=== PATIENT | male | born 1965 | race Caucasian/White ===

== ENCOUNTER → 2023-06-11 06:20 | Outpatient (REF) | payer OTHER, SELFPAY ==
[2023-06-11 10:16] LABS: Urine Albumin Trace (Neg - Trace); Urine Bilirubin Negative (Negative); Urine Character Clear (Clear); Urine Color Yellow; Urine Glucose 3+ (Negative); Urine Ketone Negative (Negative); Urine Leukocyte Negative (Negative); Urine Nitrite Negative (Negative); Urine Occult Blood Negative (Negative); Urine Urobilinogen Negative (Neg - 1+)
[2023-06-11 10:28] LABS: ALT (SGPT) 24 U/L (0-50); AST (SGOT) 26 U/L (17-59); Albumin 3.9 g/dl (3.5-5.0); Alkaline Phosphatase 57 U/L (38-126); Blood Urea Nitrogen 13 mg/dl (9-20); Calcium 9.3 mg/dl (8.4-10.2); Carbon Dioxide 26 mmol/L (22-30); Chloride 103 mmol/L (98-107); Glucose 120 mg/dl (70-99); HDL Cholesterol 45 mg/dl; LDL Cholesterol, Calculated 46 mg/dl; Potassium 4.5 mmol/L (3.5-5.1); Sodium 134 mmol/L (135-145); Total Bilirubin 0.5 mg/dl (0.2-1.3); Total Cholesterol 110 mg/dl (50-199); Total Protein 6.6 g/dl (6.3-8.2); Triglyceride 96 mg/dl (10-149); Very Low Density Lipoprotein 19 mg/dl (0-30); eGFR > 60.00
[2023-06-11 10:49] LABS: PSA, Total - Screen 0.45 ng/ml (0.0-4.0); TSH Reflex To Free T4 1.58 uIU/ml (0.47-4.68)
[2023-06-11 10:52] LABS: % Basophils 0.8 % (0-2); % Eosinophils 6.2 % (0-6); % Immature Granulocytes 0.4 % (0-0.5); % Lymphocytes 25.1 % (20.5-51.1); % Monocytes 9.2 % (1.7-9.3); % Neutrophils 58.3 % (42.2-75.2); Absolute Basophils 0.1 10^3/uL (0-0.2); Absolute Eosinophils 0.4 10^3/uL (0-0.7); Absolute Lymphocytes 1.8 10^3/uL (1.2-3.4); Absolute Monocytes 0.7 10^3/uL (0.1-0.6); Absolute Neutrophils 4.1 10^3/uL (1.4-6.5); Hematocrit 47.6 % (39.0-52.0); Hemoglobin 16.3 g/dL (13.0-18.0); Mean Corp Hgb Conc. 34.2 g/dL (33.0-37.0); Mean Corpuscular Volume 93.3 fL (80.0-94.0); Nucleated Red Blood Cells % 0 % (-); Platelet Count 233 10^3/uL (130-400); Red Cell Dist. Width 13.3 % (11.5-14.5); White Blood Cell Count 7.1 10^3/uL (4.8-10.8)
[2023-06-11 11:47] LABS: Glycohemoglobin (HgbA1c) 7.3 % (4.0-5.6)
[2023-06-11 12:27] LABS: Microalbumin, Random Urine 0.9 mg/dl (0.6-1.7); Microalbumin/creatinine Ratio 4.6 mg/g
== END ==
LOC: HWLAB 06:20
PROVIDERS: ATTENDING PHYSICIAN Family Medicine
DX: E11.9 Type 2 diabetes mellitus without complications (principal); Z00.01 Encounter for general adult medical examination with abnormal findings; E78.5 Hyperlipidemia, unspecified; Z68.37 Body mass index [BMI] 37.0-37.9, adult; E66.01 Morbid (severe) obesity due to excess calories; F17.210 Nicotine dependence, cigarettes, uncomplicated; R22.1 Localized swelling, mass and lump, neck
CPT/HCPCS: 36415; 80053; 80061; 81003; 82043; 82570; 83036; 84443; 85025; G0103

== ENCOUNTER → 2023-07-23 15:46 | Outpatient (REF) | payer OTHER, SELFPAY | LOC: HWRAD 15:46 | PROVIDERS: ATTENDING PHYSICIAN Family Medicine | DX: F17.210 Nicotine dependence, cigarettes, uncomplicated (principal) | CPT/HCPCS: 71271 ==

== ENCOUNTER → 2023-09-11 08:13 | Outpatient (REF) | payer OTHER, SELFPAY ==
[2023-09-11 09:53] LABS: ALT (SGPT) 25 U/L (0-50); AST (SGOT) 23 U/L (17-59); Albumin 4.1 g/dl (3.5-5.0); Alkaline Phosphatase 62 U/L (38-126); Amylase 50 U/L (30-110); Blood Urea Nitrogen 11 mg/dl (9-20); Calcium 9.4 mg/dl (8.4-10.2); Carbon Dioxide 24 mmol/L (22-30); Chloride 103 mmol/L (98-107); Glucose 142 mg/dl (70-99); Lipase 391 U/L (23-300); Potassium 4.7 mmol/L (3.5-5.1); Sodium 136 mmol/L (135-145); Total Bilirubin 0.4 mg/dl (0.2-1.3); Total Protein 6.5 g/dl (6.3-8.2); eGFR > 60.00
[2023-09-12 09:26] LABS: Glycohemoglobin (HgbA1c) 6.8 % (4.0-5.6)
== END ==
LOC: HWLAB 08:13
PROVIDERS: ATTENDING PHYSICIAN Family Medicine
DX: E11.9 Type 2 diabetes mellitus without complications (principal); Z00.01 Encounter for general adult medical examination with abnormal findings; E78.5 Hyperlipidemia, unspecified; Z68.37 Body mass index [BMI] 37.0-37.9, adult; E66.01 Morbid (severe) obesity due to excess calories
CPT/HCPCS: 36415; 80053; 82150; 83036; 83690

== ENCOUNTER 2023-11-19 09:58 | Inpatient (IN) | payer OTHER, SELFPAY ==
[2023-11-19] VITALS (25 sets, daily range): BP systolic 108–140; BP diastolic 57–92; BMI 42.3
[2023-11-19 07:08] LABS: Hematocrit 48.7 % (39.0-52.0); Hemoglobin 16.7 g/dL (13.0-18.0); Mean Corp Hgb Conc. 34.3 g/dL (33.0-37.0); Mean Corpuscular Hgb 30.9 pg (27.0-31.0); Mean Platelet Volume 8.4 fL (7.4-10.4); Platelet Count 253 10^3/uL (130-400); Red Blood Cell Count 5.41 10^6/uL (4.70-6.10); Red Cell Dist. Width 13.2 % (11.5-14.5); White Blood Cell Count 7.4 10^3/uL (4.8-10.8)
[2023-11-19 07:17] LABS: ALT (SGPT) 27 U/L (0-50); AST (SGOT) 25 U/L (17-59); Albumin 4.4 g/dl (3.5-5.0); Alkaline Phosphatase 62 U/L (38-126); Blood Urea Nitrogen 10 mg/dl (9-20); Calcium 9.6 mg/dl (8.4-10.2); Carbon Dioxide 25 mmol/L (22-30); Chloride 103 mmol/L (98-107); Glucose 146 mg/dl (70-99); Potassium 4.6 mmol/L (3.5-5.1); Sodium 140 mmol/L (135-145); Total Bilirubin 0.6 mg/dl (0.2-1.3); Total Protein 6.9 g/dl (6.3-8.2); eGFR > 60.00
[2023-11-19] MEDS: LOW STRENGTH ASPIRIN 81 MG PO (07:33)
--- NOTE | 2023-11-19 09:54 | ITS.CL.CATH ---
Internet Security Specialist - Catheterization
Cardiac Catheterization
Procedure Report:
LEFT HEART CATHETERIZATION
Date of Procedure: November 19, 2023
Referring: Dr. Jamel Berry
PROCEDURES:
1. Left heart catheterization with coronary and single-plane left ventriculography
INDICATION: This is a 58-year-old gentleman with a longstanding history of diabetes, hypertension, hyperlipidemia, and anxiety. He smokes approximately 1/2 pack of cigarettes daily. He reported the onset of vague left-sided chest discomfort
occurring intermittently with no obvious relationship to physical activity. We discussed coronary angiography versus stress testing. He he felt uncomfortable with the thought of proceeding directly for coronary angiography and his symptoms were
somewhat vague so we proceeded with a PET/CT ischemic evaluation where he was noted to have a moderate size reversible defect in the mid to distal anterior wall and a moderate size predominantly reversible defect in the basal to distal inferior wall
encompassing a small part of the apex. The estimated LVEF was 58%. Given his symptoms, cardiovascular risk factors, and result of the PET/CT imaging the decision was made to proceed with coronary angiography. The patient states that he
experienced some more vague chest discomfort on several occasions over the past several days while at rest and with exertion
ACCESS: Right radial artery, 6 Georgian sheath
HEMODYNAMICS : (mmHg)
AO (s/d) : 135/76, 102
LV (s/d) : 131/17
LVEDP : 28
CORONARY FINDINGS
DOMINANCE: Right
LEFT MAIN: Normal
LEFT ANTERIOR DESCENDING: The LAD is moderately calcified over its course with a proximal calcified 60-70% stenosis involving the origin of the first diagonal branch. There is a 50% stenosis in the mid LAD and 50-60% stenosis distally. The first
diagonal branch is small.
CIRCUMFLEX: The circumflex is a large-caliber nondominant vessel. OM1 has a proximal 70-80% stenosis near its origin. The mid circumflex just before the origin of OM 2 has an 80% stenosis. OM 2 is large and bifurcates to a larger and smaller
daughter branch.
RIGHT CORONARY ARTERY: The right coronary artery is heavily calcified with a long area of diffuse atherosclerotic disease in the midportion of the vessel. The RCA becomes occluded/subtotally occluded beyond the second RV marginal branch and the
distal vessel is noted to fill via right to right and [id number]-[id number] collaterals.
VENTRICULOGRAPHY: Left ventriculography was performed in an HULL projection. The digital single-plane left ventricular ejection fraction is visually estimated at 45% with history of basal and diaphragmatic inferior mild hypokinesis
RADIATION SUMMARY: Fluoro Time (min): 4.0, Dose (mGy): 474, DAP (Gy.cm2) : 38.5
Closure Device: TR band
CONCLUSIONS
1. Multivessel coronary artery disease with low normal to mildly reduced LVEF as described above
RECOMMENDATIONS
1. Will consult CT surgery
2. Patient will be admitted to initiate workup and optimize medical therapy. He experienced some resting or low level exertional chest discomfort on several occasions over the past several days. Will begin optimizing medical therapy with addition
of oral beta-isaias, ARI inhibitor, and nitrate. Blood pressures have been well-controlled in the past.
Copy to: Dr. Jamel Berry
--- NOTE | 2023-11-19 10:25 | CONSULT.CT ---
Consultation
-
Date/Time Consultation Requested: 11/18
Date/Time Consultation Performed: 11/18
Requesting Provider: Jamel Berry
Performing Provider: Elle Barron for Dr. Rikki Saleem
Reason for Consultation: CABG evaluation
Patient History
Physicians
Family Physician: Nirmal Jimenez
Outpatient Rigging Up Man: Jamel Berry
Inpatient Rigging Up Man: Jamel Berry
History of Present Illness
Terry Cooper is a 58-year-old [id number] male with past medical history significant for type 2 diabetes x 20 years, obesity, and current tobacco use, who was electively admitted for left heart catheterization on 11/19/2023.
Patient had low-dose lung CT screening for lung cancer which was negative but incidental finding of severe coronary calcifications was noted. Patient does recount over the past several of having some exertional chest tightness which resolved
quickly with rest. A PET scan was performed on 11/10/2023 and reported mid to distal anterior perfusion defect and an inferior apical defect. Patient was therefore referred for left heart catheterization to evaluate symptoms and diagnostic findings.
Left heart Cath (R radial) :
LEFT MAIN: Normal
LEFT ANTERIOR DESCENDING: Proximal calcified 60-70% stenosis involving the origin of D1. 50% mid and 50-60% distal stenosis. The first diagonal branch is small.
CIRCUMFLEX (non-dominant): 70-80% proximal OM1 near its origin. 80% mid circumflex just before the origin of OM 2. OM 2 is large and bifurcates to a larger and smaller daughter branch.
RIGHT CORONARY ARTERY: Heavily calcified with a long area of diffuse atherosclerotic disease in the midportion of the vessel. The RCA becomes occluded/subtotally occluded beyond the second RV marginal branch and the distal vessel is noted to fill
via right to right and [id number]-rq-[id number] collaterals.
VENTRICULOGRAPHY: LVEF 45% with history of basal and diaphragmatic inferior mild hypokinesis
Past Medical History
Past Medical History: Hypercholesterolemia, NIDDM (x 20 years ), Psychiatric (anxiety/depression) and Other (obesity (BMI 42.3), cervical herniate disc)
Past Surgical History
Past Surgical History: Orthopedic (C3-5 fusion, benign colon polypectomy (2020); nasal septal fracture open reduction)
Family History
Mother: Still Living
Father: Still Living (s/p CABG 5 years ago)
Family Medical History: CAD
Social History
Drug: None
Tobacco: Smoker (current 1/2 PPD x 40 years)
Personal: Single
Living: With Family
Employment: Employed ([employer] work for [employer])
Allergies
Allergy/AdvReac Type Severity Reaction Status Date / Time
No Known Allergies Allergy Unverified 12/28/19 06:58
Home Medications
�Medication �Instructions �Recorded �Confirmed �Type
metformin 500 mg tablet 1,000 mg PO BID 12/27/19 11/19/23 History
simvastatin 40 mg tablet 40 mg PO QPM 12/27/19 11/19/23 History
aspirin 81 mg tablet,delayed 81 mg PO DAILY 12/28/19 11/19/23 History
release (Ecotrin Low Strength)
dapagliflozin propanediol 5 mg 5 mg PO DAILY 11/19/23 11/19/23 History
tablet (Farxiga)
glimepiride 1 mg tablet 1 mg PO DAILY 11/19/23 11/19/23 History
tirzepatide 5 mg/0.5 mL 5 mg SC QWEEK 11/19/23 11/19/23 History
subcutaneous pen injector
(Mounjaro)
Review of Systems
-
History Source: Patient
General: Reports Weight Loss (20 pounds in the past year on Mounjaro)
HEENT: Reports No Symptoms
Respiratory: Reports No Symptoms
Cardiac: Reports Chest Pain (Exertional chest tightness)
Abdomen/GI: Reports No Symptoms
: Reports No Symptoms
Musculoskeletal: Reports No Symptoms
Skin: Reports No Symptoms
Neurological: Reports No Symptoms
Vascular: Reports No Symptoms
Physical Exam
Vital Signs
Temp 98.2 F 11/19/23 06:43
Temp route: Oral 11/19/23 06:43
Pulse 72 11/19/23 08:49
Resp Rate 20 11/19/23 08:49
Blood pressure 121/67 11/19/23 08:49
Blood pressure extremity used: Right upper arm 11/19/23 06:43
Position: Lying 11/19/23 06:43
MAP (cuff-Jovita Monitor) 84 11/19/23 08:49
SaO2 96 11/19/23 08:49
Oxygen Mode of Delivery Room air 11/19/23 06:43
Can the patient verbally communicate their pain? Yes 11/19/23 06:43
Actual Weight 133.81 kg 11/19/23 07:28
Body Mass Index (BMI) 42.3 11/19/23 07:28
Labs
11/19/23 06:55
11/19/23 06:55
Exam
General: No Apparent Distress and Other (obese)
HEENT: Normocephalic, Anicteric, Moist Mucous Membranes and PERRLA
Neck: Trachea Midline
Respiratory: Clear
Cardiac: S1/S2 and Regular Rhythm
GI: Soft, Non Tender, Non Distended and Normal Bowel Sounds
Rectal: Deferred by Provider
Skin: Warm and Dry
Neuro: AO x 3, No Motor Deficits and Nonfocal/Grossly Intact
Extremities: Pulses (+1/4 DP pulses B/L) and Other (TR band to R radial artery, no bleeding)
Lymph: No Lymphadenopathy
Psych: Calm
Assessment / Plan
-
58-year-old male with triple-vessel coronary disease and mildly reduced LV function (EF 45%)
- admit per cardiac for initiation of beta-isaias, ARI inhibitor, and nitrate. Patient currently receiving Farxiga
- Surgeon to review imaging and discuss risk benefit of CABG procedure with patient and family
Data Reviewed
-
EKG: Report Reviewed by me and Discussed with Physician
Lay Out Maker: Report Reviewed by me and Discussed with Physician
Medical Tests (Nuc Med, etc): Report Reviewed by me and Discussed with Physician
Labs: Labs Reviewed by me and Discussed with Physician
[2023-11-19] MEDS: TOPROL XL 25 MG PO (11:24)
[2023-11-19 12:25] LABS: Glucose - Point of Care 125 mg/dl (70-99)
[2023-11-19] MEDS: NOVOLOG FLEXPEN-MODERATE RESISTANCE SC (12:37)
--- NOTE | 2023-11-19 14:56 | CM ---
Chart reviewed. Patient is independent of ADLS, lives with his mother in a 2 STH, 3-4 ADRIANO, 0 DME. Plan is for the patient to return home. CM to follow
[2023-11-19 16:52] LABS: Glucose - Point of Care 152 mg/dl (70-99)
[2023-11-19] MEDS: LIPITOR 80 MG PO (17:24)
[2023-11-19] MEDS: ZESTRIL 2.5 MG PO (17:24)
[2023-11-19] MEDS: NOVOLOG FLEXPEN-MODERATE RESISTANCE 1 UNITS SC (17:27)
[2023-11-19 21:18] LABS: Glucose - Point of Care 152 mg/dl (70-99)
[2023-11-19] MEDS: NITROGLYCERIN PREMIX 250 IV (21:40)
--- NOTE | 2023-11-19 22:20 | W.PN.UPDATE ---
Addendum entered and electronically signed by Rikki Saleem MD 11/20/23 10:06:
I saw and examined the patient.
The PA's note was reviewed and I agree with the note.
Comment:
Patient seen and examined. Remains chest pain-free after overnight issue. Given this event, I believe it is prudent to proceed with inpatient surgical revascularization. I will make arrangements for this coming 11/25/2023. I anticipate
CABG x 4-5 with LOPEZ to LAD, GSV to OM1, RA to OM 2, GSV to PDA, and potential GSV to D1 (this vessel is likely too small to accommodate bypass but will be assessed intraoperatively). The patient is agreeable to proceeding with inpatient CABG. I
will have a full preoperative discussion with the patient and his family once they arrive later today.
Thank you for the opportunity to participate in the care of this patient.
Please call with any questions or concerns.
Rikki Saleem MD
[phone]
Original Note:
Update Note
Progress Note Update
-came at 9:35pm to eval pt for 3/10 CP. It feels like 'squeezing, pressure' discomfort, well localized with 1 finger at L sternal border without radiation, no exacerbating factors, not reproducible with palpation, feels similar to his prior sxs. ECG
without acute changes. CP resolved spontaneously during our conversation. BP 120/80, hr 68 nsr, pOx 96% on RA and 97% on 2L.
-started iv Nitro
-will continue to monitor
[2023-11-19] MEDS: MAALOX PLUS 1 TABLET PO (23:04)
[2023-11-19] MEDS: COLACE 100 MG PO (23:04)
--- NOTE | 2023-11-19 23:41 | PTCARENOTE ---
at approx 2130, patient called for RN complaining of chest pain. 3/10 Left chest pressure, non radiating. updated Tsilina CV PA; at bedside. EKG completed. placed on 2L-96% on RA. chest pain wax and weans per patient. Nitro gtt started per PA. bp
120/80. SR 60s on tele. reviewed new medication with patient and verbalized understanding. educated patient to call with any new changes. call burciaga within reach.
[2023-11-20] VITALS (17 sets, daily range): BP systolic 90–134; BP diastolic 53–80
[2023-11-20 04:53] LABS: INR 1.06; PT 13.8 Sec (11.4-14.6)
[2023-11-20 04:54] LABS: APTT 28.6 Sec (23.4-35.0)
[2023-11-20 05:01] LABS: Hematocrit 44.3 % (39.0-52.0); Hemoglobin 15.2 g/dL (13.0-18.0); Mean Corp Hgb Conc. 34.3 g/dL (33.0-37.0); Mean Corpuscular Hgb 30.8 pg (27.0-31.0); Mean Corpuscular Volume 89.7 fL (80.0-94.0); Mean Platelet Volume 8.6 fL (7.4-10.4); Platelet Count 198 10^3/uL (130-400); Red Blood Cell Count 4.94 10^6/uL (4.70-6.10); Red Cell Dist. Width 13.2 % (11.5-14.5); White Blood Cell Count 8.7 10^3/uL (4.8-10.8)
[2023-11-20 05:11] LABS: ALT (SGPT) 23 U/L (0-50); AST (SGOT) 21 U/L (17-59); Albumin 3.6 g/dl (3.5-5.0); Alkaline Phosphatase 57 U/L (38-126); Blood Urea Nitrogen 14 mg/dl (9-20); Calcium 9.5 mg/dl (8.4-10.2); Carbon Dioxide 26 mmol/L (22-30); Chloride 101 mmol/L (98-107); Direct Bilirubin 0.2 mg/dl (0.0-0.4); Estimated Creatinine Clearance > 125 ml/min; Glucose 148 mg/dl (70-99); HDL Cholesterol 41 mg/dl; LDL Cholesterol, Calculated 38 mg/dl; Potassium 4.6 mmol/L (3.5-5.1); Sodium 139 mmol/L (135-145); Total Bilirubin 0.6 mg/dl (0.2-1.3); Total Cholesterol 104 mg/dl (50-199); Total Protein 6.1 g/dl (6.3-8.2); Triglyceride 125 mg/dl (10-149); Very Low Density Lipoprotein 25 mg/dl (0-30); eGFR > 60.00
--- NOTE | 2023-11-20 06:30 | PTCARENOTE ---
patient complained of chest pressure this morning. titrated nitro gtt per protocol. currently nitro gtt at 20 mcg/min. bp 117/67. SR 80s.
--- NOTE | 2023-11-20 08:00 | PTCARENOTE ---
Assumed care of pt from prev nsg shift; Pt AAOx3 with c/o 1-2 chest 'discomfort'; Pt states 'the nitroglycerin is helping'. Pt w/IV Nitro drip infusing as ordered. Pt's VS stable w/HR in the 70's-80's, BP a little low at 90/68. Pt's R radial site
w/dressing C/D/I w/no signs or symptoms of bleeding or hematoma. Pt encouraged to ambulate more & eat meals OOB in . Pt agreeable to that suggestion. Pt w/no addtl needs this time. Call burciaga within reach.
[2023-11-20 09:07] LABS: Glucose - Point of Care 159 mg/dl (70-99)
[2023-11-20 09:40] LABS: Glycohemoglobin (HgbA1c) 6.6 % (4.0-5.6)
[2023-11-20] MEDS: ZESTRIL 2.5 MG PO (09:48)
[2023-11-20] MEDS: NOVOLOG FLEXPEN-MODERATE RESISTANCE 1 UNITS SC (09:48)
[2023-11-20] MEDS: AMARYL 1 MG PO (09:49)
[2023-11-20] MEDS: TOPROL XL 25 MG PO (09:49)
[2023-11-20] MEDS: LOW STRENGTH ASPIRIN 81 MG PO (09:49)
--- NOTE | 2023-11-20 11:37 | CM ---
Chart reviewed. Patient is independent of ADLS, lives with his mother in a 2 STH, 3-4 ADRIANO, 0 DME. Patient waiting to talk with CT Surgery on plan of care. Plan is for the patient to return home. CM to follow
[2023-11-20 13:25] LABS: Glucose - Point of Care 136 mg/dl (70-99)
[2023-11-20] MEDS: NOVOLOG FLEXPEN-MODERATE RESISTANCE SC ×2 (13:28→18:09)
--- NOTE | 2023-11-20 13:36 | W.PN.UPDATE ---
Update Note
Progress Note Update
STS RISK SCORE
Procedure Type:�Isolated CABG
PERIOPERATIVE OUTCOME ESTIMATE %
Operative Mortality 0.63%
Morbidity & Mortality 5.57%
Stroke 0.607%
Renal Failure 0.734%
Reoperation 1.46%
Prolonged Ventilation 3.09%
Deep Sternal Wound Infection 0.757%
Long Hospital Stay (>14 days) 2.83%
Short Hospital Stay (<6 days)* 55.1%
Clinical Summary
Planned Surgery: Isolated CABG, Urgent, First cardiovascular surgery
Demographics: 58 year old, male, 133.8kg, 178cm, BMI: 42.2 kg/m�
Lab Values: Creatinine: 0.7 mg/dL, Hematocrit: 44.3%, WBC Count: 8.7 10�/�L, Platelet Count: 371991 cells/�L
PreOp Medications: Insulin diabetes control
Substance Abuse: Current smoker
Risk Factors / Comorbidities: Insulin-dependent Diabetes Mellitus, Hypertension
Cardiac Status: NYHA Class II, Ejection Fraction = 57%
Coronary Artery Disease: 3 vessels diseased, Proximal LAD Stenosis >=70%, Stable Angina
Valve Disease: Trivial/Trace MR, Trivial/Trace TR
[2023-11-20 17:10] LABS: Glucose - Point of Care 139 mg/dl (70-99)
[2023-11-20] MEDS: LIPITOR 80 MG PO (18:35)
[2023-11-20 20:19] LABS: Urine Albumin Negative (Neg - Trace); Urine Bilirubin Negative (Negative); Urine Character Clear (Clear); Urine Color Yellow; Urine Glucose 2+ (Negative); Urine Ketone Negative (Negative); Urine Leukocyte Negative (Negative); Urine Nitrite Negative (Negative); Urine Occult Blood Negative (Negative); Urine Specific Gravity 1.015 (<1.030); Urine Urobilinogen Negative (Neg - 1+)
[2023-11-20 21:12] LABS: Glucose - Point of Care 140 mg/dl (70-99)
[2023-11-20] MEDS: MAALOX 30 ML PO (23:57)
[2023-11-21] VITALS (10 sets, daily range): BP systolic 98–130; BP diastolic 53–71
--- NOTE | 2023-11-21 00:03 | PTCARENOTE ---
Pt received start of shift, HR SR. R AC iv noted to be red and painful to touch (no edema). Line removed and new line placed in L AC. IV team notified - warm compress on old R AC site. Updated pt on plan of care, pt states understanding.
Nitro gtt currently infusing at 35mcgs/min. Pt reports having been CP free previous shift after sitting up in chair. On lying down in bed w/ HOB 60 degrees, pt states feeling chest pressure/pain 2/10. Nitro titrated - see worklist. Pt informed RN he
has been having similar pain/pressure when lying down at home for the past few months and GasX + 'heartburn medicine' has helped. Spoke to CVPA Ed, maalox ordered and administered. Pt ambulated to chair - pt states as soon as they were sitting on
side of the bed/standing, CP started to dissipate. Pt currently reports 0/10 CP sitting w/ legs up in chair.
[2023-11-21 04:12] LABS: Hematocrit 43.1 % (39.0-52.0); Hemoglobin 15.1 g/dL (13.0-18.0); Mean Corpuscular Hgb 32.1 pg (27.0-31.0); Mean Corpuscular Volume 91.5 fL (80.0-94.0); Mean Platelet Volume 8.8 fL (7.4-10.4); Platelet Count 205 10^3/uL (130-400); Red Blood Cell Count 4.71 10^6/uL (4.70-6.10); Red Cell Dist. Width 12.9 % (11.5-14.5); White Blood Cell Count 11.5 10^3/uL (4.8-10.8)
[2023-11-21 04:31] LABS: Blood Urea Nitrogen 18 mg/dl (9-20); Calcium 9.5 mg/dl (8.4-10.2); Carbon Dioxide 26 mmol/L (22-30); Chloride 97 mmol/L (98-107); Estimated Creatinine Clearance > 125 ml/min; Glucose 145 mg/dl (70-99); Potassium 4.4 mmol/L (3.5-5.1); Sodium 134 mmol/L (135-145); eGFR > 60.00
--- NOTE | 2023-11-21 08:01 | W.PN.CT ---
Today's Communication / Plan
-
Plan:
-Pt had 3/10 chest pain last night with attempts to wean off NTG gtt. Cont. NTG gtt
-Ongoing preop workup and medical optimization
-For CABG by Dr. Saleem Friday 11/24
-Will cont. to closely monitor
Assessment / Plan
-
Assessment:
-Severe 3vCAD
-T2DM (A1C 6.6)
-Hyperlipidemia
-Class 3 obesity (BMI 42.3)
-Current tobacco use
-Anxiety/Depression
-S/P Cervical spine fusion (C3-5)
-S/P Nasal septal fx reduction
Discussed patient care with: Cardiology, Nursing, Pharmacy and Care Team
Subjective
-
Date of Service: November 21, 2023
Pt had 3/10 chest pain with NTG weaned to 5 mcg/min last night. Resolved with increased NTG to 35 mcg/min
Objective Data
-
Lab Results
11/21/23 03:32
11/21/23 03:32
PT 13.8 Sec (11.4-14.6) 11/20/23 04:12
INR 1.06 11/20/23 04:12
APTT 28.6 Sec (23.4-35.0) 11/20/23 04:12
Vital Signs
Vital Signs
Temp Pulse Resp BP Pulse Ox
98.4 F 79 18 117/64 94
11/21/23 03:25 11/21/23 03:30 11/21/23 03:25 11/21/23 03:25 11/21/23 03:25
CT Intake/Output/Weight
11/20/23 11/21/23 11/21/23
18:59 06:59 18:59
Intake Total 960 / 1440 480 / 1440
Balance 960 / 1440 480 / 1440
SaO2: 94 (RA)
Physical Exam
-
General: Awake, Oriented and AOx3
Cardiovascular: Regular rate & rhythm
Respiratory: Clear
Extremities: No Edema
Data Reviewed
-
Lab Results: Results Reviewed
Medications: Active Meds Reviewed
Chest X-Ray: Report Reviewed and Image Reviewed
[2023-11-21] MEDS: LOW STRENGTH ASPIRIN 81 MG PO (08:25)
[2023-11-21] MEDS: AMARYL 1 MG PO (08:25)
[2023-11-21] MEDS: ZESTRIL 2.5 MG PO (08:25)
[2023-11-21] MEDS: TOPROL XL 25 MG PO (08:25)
[2023-11-21 08:30] LABS: Glucose - Point of Care 146 mg/dl (70-99)
[2023-11-21] MEDS: NOVOLOG FLEXPEN-MODERATE RESISTANCE SC ×3 (08:30→17:00)
--- NOTE | 2023-11-21 10:08 | W.PN.CARDCBS ---
Today's Communication / Plan
-
Check Mg and Keep Potassium greater than 4 and magnesium greater than 2. Potassium level is normal today
Increase Toprol XL to 37.5 mg daily. Will give 12.5 mg now.
If he has recurrent NSVT or significant ventricular ectopy, will consider starting amiodarone.
Cont IV nitro for pain control.
CT surgery evaluated and patient is for next week for CABG.
EF is preserved
Cont ASA and statin and ACEI
Impression / Plan
-
.
IMPRESSION:
-Multivessel coronary artery disease, following cath for abnormal stress testing
-NSVT, 10 beat run November 20
-Type 2 diabetes
-Morbid obesity
-Mixed hyperlipidemia
-Anxiety disorder
Echo Nov 19 2023: EF 55 to 60% with no significant valvular disease.
Left heart Cath (R radial) 11/19/2023:
LEFT MAIN: Normal
LEFT ANTERIOR DESCENDING: Proximal calcified 60-70% stenosis involving the origin of D1. 50% mid and 50-60% distal stenosis. The first diagonal branch is small.
CIRCUMFLEX (non-dominant): 70-80% proximal OM1 near its origin. 80% mid circumflex just before the origin of OM 2. OM 2 is large and bifurcates to a larger and smaller daughter branch.
RIGHT CORONARY ARTERY: Heavily calcified with a long area of diffuse atherosclerotic disease in the midportion of the vessel. The RCA becomes occluded/subtotally occluded beyond the second RV marginal branch and the distal vessel is noted to fill
via right to right and qbzm-gq-[id number] collaterals.
Plan:
Check Mg and Keep Potassium greater than 4 and magnesium greater than 2. Potassium level is normal today
Increase Toprol XL to 37.5 mg daily. Will give 12.5 mg now.
If he has recurrent NSVT or significant ventricular ectopy, will consider starting amiodarone.
Cont IV nitro for pain control.
CT surgery evaluated and patient is for next week for CABG.
EF is preserved
Cont ASA and statin and ACEI
Discussed with nursing
Discussed with family at bedside.
Progress Note - Social Service Coordinator
Subjective
Date of Service: November 21, 2023
Pt seen and examined. No complaints. No chest pain or shortness of breath.
Objective
Labs:
11/21/23 03:32
11/21/23 03:32
Labs
Hgb 15.1 g/dL (13.0-18.0) 11/21/23 03:32
Hct 43.1 % (39.0-52.0) 11/21/23 03:32
Plt Count 205 10^3/uL (130-400) 11/21/23 03:32
PT 13.8 Sec (11.4-14.6) 11/20/23 04:12
INR 1.06 11/20/23 04:12
APTT 28.6 Sec (23.4-35.0) 11/20/23 04:12
Sodium 134 mmol/L (135-145) L 11/21/23 03:32
Potassium 4.4 mmol/L (3.5-5.1) 11/21/23 03:32
BUN 18 mg/dl (9-20) 11/21/23 03:32
Creatinine 0.7 mg/dL (0.7-1.3) 11/21/23 03:32
Glucose 145 mg/dl (70-99) H 11/21/23 03:32
Vital Signs and I&O:
Vital Signs
Temp Pulse Resp BP Pulse Ox
97.6 F 79 18 117/61 96
11/21/23 08:16 11/21/23 08:15 11/21/23 08:16 11/21/23 08:11 11/21/23 08:16
Vital Signs
Temp Pulse Resp BP Pulse Ox
97.6 F 79 18 117/61 96
11/21/23 08:16 11/21/23 08:15 11/21/23 08:16 11/21/23 08:11 11/21/23 08:16
Intake & Output
11/19/23 11/20/23 11/21/23 11/22/23
06:59 06:59 06:59 06:59
Intake Total 1360 / 1360 1440 / 1440
Output Total 500 / 500 350 / 350
Balance 860 / 860 1440 / 1440 -350 / -350
Physical Exam
Physical Exam
General: No acute distress, AAOX3
Neck: Negative JVD
Heart: Regular, Negative S3 positive S1/S2, Negative S4, No murmur
Lungs: CTA b/l, negative wheezes/rales/rhonchi
Abd: Positive BS, NT/ND, neg rebound/rigidity/guarding
Ext: Negative cyanosis/clubbing/edema
Neuro: nonfocal
[2023-11-21 12:42] LABS: Glucose - Point of Care 149 mg/dl (70-99)
--- NOTE | 2023-11-21 13:20 | PTCARENOTE ---
Patient in chair. Had a brief moment of lightheadedness before his telemetry alarmed [address] Rivas notified. Magnesium added and Toprol 12.5 mg ordered now. If ectopy continues notify attending
[2023-11-21 13:53] LABS: Magnesium 2.1 mg/dl (1.6-2.3)
[2023-11-21] MEDS: TOPROL XL 12.5 MG PO (15:17)
[2023-11-21 16:54] LABS: Glucose - Point of Care 142 mg/dl (70-99)
[2023-11-21] MEDS: LIPITOR 80 MG PO (17:08)
[2023-11-21 21:32] LABS: Glucose - Point of Care 172 mg/dl (70-99)
[2023-11-22 02:48] VITALS: BP 127/65
[2023-11-22 03:30] LABS: Blood Urea Nitrogen 16 mg/dl (9-20); Calcium 9.4 mg/dl (8.4-10.2); Carbon Dioxide 26 mmol/L (22-30); Chloride 102 mmol/L (98-107); Estimated Creatinine Clearance > 125 ml/min; Glucose 132 mg/dl (70-99); Magnesium 2.2 mg/dl (1.6-2.3); Potassium 4.7 mmol/L (3.5-5.1); Sodium 137 mmol/L (135-145); eGFR > 60.00
--- NOTE | 2023-11-22 06:25 | PTCARENOTE ---
Pt tolerated lying down in bed with no recurrence of CP overnight. Nitro infusing at 35mcg/min.
--- NOTE | 2023-11-22 06:32 | W.PN.CT ---
Today's Communication / Plan
-
Plan:
-No CP overnight. On NTG gtt
-Consider heparin gtt if further CP
-Ongoing preop workup and medical optimization
-For CABG by Dr. Saleem Friday 11/24
-Will cont. to closely monitor
Assessment / Plan
-
Assessment:
-Severe 3vCAD
-T2DM (A1C 6.6)
-Hyperlipidemia
-Class 3 obesity (BMI 42.3)
-Current tobacco use
-Anxiety/Depression
-S/P Cervical spine fusion (C3-5)
-S/P Nasal septal fx reduction
Discussed patient care with: Cardiology, Nursing, Respiratory Therapy, Pharmacy and Care Team
Subjective
-
Date of Service: November 22, 2023
No CP overnight. On NTG gtt
Objective Data
-
Lab Results
11/21/23 03:32
11/22/23 02:54
PT 13.8 Sec (11.4-14.6) 11/20/23 04:12
INR 1.06 11/20/23 04:12
APTT 28.6 Sec (23.4-35.0) 11/20/23 04:12
Vital Signs
Vital Signs
Temp Pulse Resp BP Pulse Ox
98.8 F 78 18 127/65 93
11/22/23 02:48 11/22/23 03:00 11/22/23 02:48 11/22/23 02:48 11/22/23 02:[address]
CT Intake/Output/Weight
11/21/23 11/21/23 11/22/23
06:59 18:59 06:59
Intake Total 480 / 1440 925 / 925
Output Total 350 / 350
Balance 480 / 1440 575 / 575
SaO2: 93 (RA)
Physical Exam
-
General: Awake, Oriented and AOx3
Cardiovascular: Regular rate & rhythm
Respiratory: Clear
Extremities: No Edema
Data Reviewed
-
Lab Results: Results Reviewed
Medications: Active Meds Reviewed
Chest X-Ray: Report Reviewed and Image Reviewed
ECG: Report Reviewed and Image Reviewed
[2023-11-22] MEDS: NITROGLYCERIN PREMIX 250 IV (07:12)
[2023-11-22 07:45] VITALS: BP 132/73
[2023-11-22 07:47] LABS: Glucose - Point of Care 130 mg/dl (70-99)
[2023-11-22] MEDS: NOVOLOG FLEXPEN-MODERATE RESISTANCE SC ×2 (08:19→16:54)
[2023-11-22] MEDS: ZESTRIL 2.5 MG PO (08:26)
[2023-11-22] MEDS: FLUSH (NSS) 1 FLUSH IV (08:27)
[2023-11-22] MEDS: TOPROL XL 12.5 MG PO (08:27)
[2023-11-22] MEDS: AMARYL 1 MG PO (08:27)
[2023-11-22] MEDS: TOPROL XL 25 MG PO (08:27)
[2023-11-22] MEDS: LOW STRENGTH ASPIRIN 81 MG PO (08:27)
[2023-11-22] MEDS: COLACE 100 MG PO (08:29)
--- NOTE | 2023-11-22 08:43 | PTCARENOTE ---
The patient is aaox3, vss, NSR on the monitor. Nitroglycerin running at 35 mcg/min. He complains of a 1/10 chest pain/pressure. He states that it gets worse when he lays flat. He has an occasional moist productive cough that has a clear/gonzales color to
it.
--- NOTE | 2023-11-22 10:06 | W.PN.CARDCBS ---
Today's Communication / Plan
-
No recurrent NSVT
Keep Potassium greater than 4 and magnesium greater than 2. Levels are stable
Toprol XL increased to 37.5 mg daily Nov 20.
If he has recurrent NSVT or significant ventricular ectopy, will consider starting amiodarone.
Cont IV nitro for pain control. CP may have a GI component
CT surgery evaluated and patient is for CABG next week
Impression / Plan
-
.
IMPRESSION:
-Multivessel coronary artery disease, following cath for abnormal stress testing
-NSVT, 10 beat run November 20
-Type 2 diabetes
-Morbid obesity
-Mixed hyperlipidemia
-Anxiety disorder
Echo Nov 19 2023: EF 55 to 60% with no significant valvular disease.
Left heart Cath (R radial) 11/19/2023:
LEFT MAIN: Normal
LEFT ANTERIOR DESCENDING: Proximal calcified 60-70% stenosis involving the origin of D1. 50% mid and 50-60% distal stenosis. The first diagonal branch is small.
CIRCUMFLEX (non-dominant): 70-80% proximal OM1 near its origin. 80% mid circumflex just before the origin of OM 2. OM 2 is large and bifurcates to a larger and smaller daughter branch.
RIGHT CORONARY ARTERY: Heavily calcified with a long area of diffuse atherosclerotic disease in the midportion of the vessel. The RCA becomes occluded/subtotally occluded beyond the second RV marginal branch and the distal vessel is noted to fill
via right to right and [id number]-[id number] collaterals.
Plan:
No recurrent NSVT
Keep Potassium greater than 4 and magnesium greater than 2. Levels are stable
Toprol XL increased to 37.5 mg daily Nov 20.
If he has recurrent NSVT or significant ventricular ectopy, will consider starting amiodarone.
Cont IV nitro for pain control. CP may have a GI component
CT surgery evaluated and patient is for CABG next week
EF is preserved
Cont ASA and statin and ACEI
Discussed with nursing
Progress Note - Crusher Foreman
Subjective
Date of Service: November 22, 2023
Pt seen and examined. No complaints. No chest pain or shortness of breath.
Objective
Labs:
11/21/23 03:32
11/22/23 02:54
Labs
Hgb 15.1 g/dL (13.0-18.0) 11/21/23 03:32
Hct 43.1 % (39.0-52.0) 11/21/23 03:32
Plt Count 205 10^3/uL (130-400) 11/21/23 03:32
PT 13.8 Sec (11.4-14.6) 11/20/23 04:12
INR 1.06 11/20/23 04:12
APTT 28.6 Sec (23.4-35.0) 11/20/23 04:12
Sodium 137 mmol/L (135-145) 11/22/23 02:54
Potassium 4.7 mmol/L (3.5-5.1) 11/22/23 02:54
BUN 16 mg/dl (9-20) 11/22/23 02:54
Creatinine 0.7 mg/dL (0.7-1.3) 11/22/23 02:54
Glucose 132 mg/dl (70-99) H 11/22/23 02:54
Vital Signs and I&O:
Vital Signs
Temp Pulse Resp BP Pulse Ox
98.7 F 77 20 132/73 93
11/22/23 07:48 11/22/23 08:00 11/22/23 07:48 11/22/23 07:45 11/22/23 07:48
Vital Signs
Temp Pulse Resp BP Pulse Ox
98.7 F 77 20 132/73 93
11/22/23 07:48 11/22/23 08:00 11/22/23 07:48 11/22/23 07:45 11/22/23 07:48
Intake & Output
11/20/23 11/21/23 11/22/23 11/23/23
06:59 06:59 06:59 06:59
Intake Total 1360 / 1360 1440 / 1440 925 / 925
Output Total 500 / 500 350 / 350
Balance 860 / 860 1440 / 1440 575 / 575
Physical Exam
Physical Exam
General: No acute distress, AAOX3
Neck: Negative JVD
Heart: Regular, Negative S3 positive S1/S2, Negative S4, No murmur
Lungs: CTA b/l, negative wheezes/rales/rhonchi
Abd: Positive BS, NT/ND, neg rebound/rigidity/guarding
Ext: Negative cyanosis/clubbing/edema
Neuro: nonfocal
[2023-11-22 11:52] VITALS: BP 105/63
[2023-11-22 11:56] LABS: Glucose - Point of Care 232 mg/dl (70-99)
[2023-11-22] MEDS: NOVOLOG FLEXPEN-MODERATE RESISTANCE 3 UNITS SC (13:08)
--- NOTE | 2023-11-22 14:16 | PTCARENOTE ---
Rec'd Pt A,A+Ox3, offers no complaints. IV NTG infusing at 35 mcg/min. Pt currently sitting OOB in chair.
[2023-11-22 15:51] VITALS: BP 108/62
[2023-11-22 16:52] LABS: Glucose - Point of Care 122 mg/dl (70-99)
[2023-11-22] MEDS: LIPITOR 80 MG PO (17:51)
[2023-11-22 18:58] VITALS: BP 108/64
[2023-11-22 21:04] LABS: Glucose - Point of Care 156 mg/dl (70-99)
[2023-11-22 22:52] VITALS: BP 110/49
[2023-11-23] VITALS (8 sets, daily range): BP systolic 111–129; BP diastolic 62–74
[2023-11-23 04:21] LABS: Chloride 104 mmol/L (98-107); Potassium 4.8 mmol/L (3.5-5.1); Sodium 137 mmol/L (135-145)
[2023-11-23 04:57] LABS: Blood Urea Nitrogen 13 mg/dl (9-20); Calcium 9.4 mg/dl (8.4-10.2); Carbon Dioxide 21 mmol/L (22-30); Estimated Creatinine Clearance > 125 ml/min; Glucose 120 mg/dl (70-99); eGFR > 60.00
--- NOTE | 2023-11-23 05:22 | PTCARENOTE ---
Pt states CP free overnight. Nitro infusing at 35mcg/min. Pt states they understand of plan of care.
--- NOTE | 2023-11-23 06:01 | W.PN.CT ---
Addendum entered and electronically signed by Rikki Saleem MD 11/23/23 15:36:
CARDIAC SURGERY ATTENDING:
It was my pleasure to meet with Mr. Terry Cooper in his bedside this afternoon. His mother was present during our discussions. We once again reviewed his coronary pathology, discussed the proposed operative interventions, reviewed the
perioperative risks (including, but not limited to, , stroke, VA, arrhythmia, PNA, FELICIANO/F, bleeding, and infection), discussed the expected in-hospital postoperative course and reviewed the expected outpatient recovery. All questions were
answered to the best of my abilities. The patient is agreeable to proceed.
I anticipate surgical coronary revascularization x 4-5 with planned WHITE to his LAD, greater saphenous vein to OM1, radial artery to OM 2, greater saphenous vein to PDA, and possible greater saphenous vein to his first diagonal. Given his very
brief episode of atrial fibrillation I will perform an exclusion of his left atrial appendage at the time of this procedure.
Thank you for the opportunity to participate in the care of this kind gentleman.
Please call with any questions or concerns.
Rikki Saleem MD
[phone]
Original Note:
Today's Communication / Plan
-
Plan:
-No CP overnight. On NTG gtt
-Consider heparin gtt if further CP
-Cont. to hold ARI-I/ARBs in preparation for OR
-Ongoing preop workup and medical optimization
-For CABG by Dr. Saleem Friday 11/24
-Will cont. to closely monitor
Assessment / Plan
-
Assessment:
-Severe 3vCAD
-T2DM (A1C 6.6)
-Hyperlipidemia
-Class 3 obesity (BMI 42.3)
-Current tobacco use
-Anxiety/Depression
-S/P Cervical spine fusion (C3-5)
-S/P Nasal septal fx reduction
Discussed patient care with: Cardiology, Nursing, Respiratory Therapy, Pharmacy and Care Team
Subjective
-
Date of Service: November 23, 2023
No chest pain or SOB overnight
Objective Data
-
Lab Results
11/21/23 03:32
11/23/23 03:23
PT 13.8 Sec (11.4-14.6) 11/20/23 04:12
INR 1.06 11/20/23 04:12
APTT 28.6 Sec (23.4-35.0) 11/20/23 04:12
Vital Signs
Vital Signs
Temp Pulse Resp BP Pulse Ox
98.9 F 76 18 113/62 94
11/23/23 03:10 11/23/23 04:00 11/23/23 03:10 11/23/23 03:14 11/23/23 03:10
SaO2: 94 (RA)
Physical Exam
-
General: Awake, Oriented and AOx3
Cardiovascular: Regular rate & rhythm, No Murmurs, No Rub and No Gallop
Respiratory: Clear
Incision: Clean, Dry, Intact and Dressing Intact
Extremities: No Edema
Data Reviewed
-
Lab Results: Results Reviewed
Medications: Active Meds Reviewed
Chest X-Ray: Report Reviewed and Image Reviewed
ECG: Report Reviewed and Image Reviewed
[2023-11-23] MEDS: AMARYL 1 MG PO (08:07)
[2023-11-23] MEDS: TOPROL XL 12.5 MG PO (08:08)
[2023-11-23] MEDS: LOW STRENGTH ASPIRIN 81 MG PO (08:09)
[2023-11-23] MEDS: TOPROL XL 25 MG PO (08:13)
[2023-11-23 08:19] LABS: Glucose - Point of Care 127 mg/dl (70-99)
[2023-11-23] MEDS: NOVOLOG FLEXPEN-MODERATE RESISTANCE SC (08:19)
[2023-11-23] MEDS: COLACE 100 MG PO ×2 (08:44→19:25)
--- NOTE | 2023-11-23 10:01 | W.PN.CARDCBS ---
Addendum entered and electronically signed by Jc Huitron DO 11/23/23 12:37:
I saw and examined the patient.
The Black Top Spreader Machine Operator's note was reviewed and I agree with the note.
Comment:
For CABG Nov 24
Cont ASA
Cont statin
Cont Toprol
No recurrent NSVT
Cont IV nitro for pain control, may have a GI component
Original Note:
Today's Communication / Plan
-
Continue ASA, statin, Toprol
Remains on NTG gtt
Anticipated CABG 11/24
Impression / Plan
-
.
PCP: Nirmal Jimenez
Cherry Dipper:Dr. Berry
IMPRESSION:
-Multivessel coronary artery disease, following cath for abnormal stress testing
-NSVT, 10 beat run November 20
-Type 2 diabetes
-Morbid obesity
-Mixed hyperlipidemia
-Anxiety disorder
Echo Nov 19 2023: EF 55 to 60% with no significant valvular disease.
Left heart Cath (R radial) 11/19/2023:
LEFT MAIN: Normal
LEFT ANTERIOR DESCENDING: Proximal calcified 60-70% stenosis involving the origin of D1. 50% mid and 50-60% distal stenosis. The first diagonal branch is small.
CIRCUMFLEX (non-dominant): 70-80% proximal OM1 near its origin. 80% mid circumflex just before the origin of OM 2. OM 2 is large and bifurcates to a larger and smaller daughter branch.
RIGHT CORONARY ARTERY: Heavily calcified with a long area of diffuse atherosclerotic disease in the midportion of the vessel. The RCA becomes occluded/subtotally occluded beyond the second RV marginal branch and the distal vessel is noted to fill
via right to right and [id number] collaterals.
Plan:
Multivessel coronary artery disease found on catheterization. Plan for CABG 11/25/23
EF is preserved
Cont IV nitro for pain control. CP may have a GI component
ARI inhibitor placed on hold in anticipation of CABG. Would resume postoperatively if able
Hyperlipidemia lipids 11/20/2023 TC 104, HDL 41, LDL 38, triglycerides 125. Now on higher intensity atorvastatin 80 mg. Continue
Diabetes, hemoglobin A1c 6.6%. Continue glimepiride. Was on Farxiga as outpatient
No recurrent NSVT
Keep Potassium greater than 4 and magnesium greater than 2. Levels are stable
Toprol XL increased to 37.5 mg daily Nov 20.
If he has recurrent NSVT or significant ventricular ectopy, will consider starting amiodarone.
Discussed with nursing
Progress Note - Cherry Dipper
Subjective
Date of Service: November 23, 2023
Patient seen and examined. Patient sitting up in chair. Patient reports he is feeling well. Denies palpitations, dizziness or lightheadedness. On nitro drip and denies chest pain
Objective
Labs:
11/21/23 03:32
11/23/23 03:23
Labs
Hgb 15.1 g/dL (13.0-18.0) 11/21/23 03:32
Hct 43.1 % (39.0-52.0) 11/21/23 03:32
Plt Count 205 10^3/uL (130-400) 11/21/23 03:32
PT 13.8 Sec (11.4-14.6) 11/20/23 04:12
INR 1.06 11/20/23 04:12
APTT 28.6 Sec (23.4-35.0) 11/20/23 04:12
Sodium 137 mmol/L (135-145) 11/23/23 03:23
Potassium 4.8 mmol/L (3.5-5.1) 11/23/23 03:23
BUN 13 mg/dl (9-20) 11/23/23 03:23
Creatinine 0.6 mg/dL (0.7-1.3) L 11/23/23 03:23
Glucose 120 mg/dl (70-99) H 11/23/23 03:23
Vital Signs and I&O:
Vital Signs
Temp Pulse Resp BP Pulse Ox
98.3 F 75 16 116/67 95
11/23/23 07:00 11/23/23 08:13 11/23/23 07:00 11/23/23 08:13 11/23/23 09:37
Vital Signs
Temp Pulse Resp BP Pulse Ox
98.3 F 75 16 116/67 95
11/23/23 07:00 11/23/23 08:13 11/23/23 07:00 11/23/23 08:13 11/23/23 09:37
Intake & Output
11/21/23 11/22/23 11/23/23 11/24/23
06:59 06:59 06:59 06:59
Intake Total 1440 / 1440 925 / 925 240 / 240
Output Total 350 / 350
Balance 1440 / 1440 575 / 575 240 / 240
Physical Exam
Physical Exam
GEN: No distress, awake, Ox3
HEENT: supple, anicteric, mmm
LUNGS: CTA, no wheezes/rales
CV: Reg, S1/S2, no murmur, rub or gallop
ABD: soft, BS+, NT/ND
EXT: No edema, clubbing or cyanosis
NEURO: Gross non-focal
SKIN: No rash, warm, dry, pale
--- NOTE | 2023-11-23 11:28 | CM ---
plan CABG 11/24, cm following
[2023-11-23 11:52] LABS: Glucose - Point of Care 189 mg/dl (70-99)
--- NOTE | 2023-11-23 12:28 | PTCARENOTE ---
Rec'd pt at change of shift. Pt on TELE monitor in NSR with VSS and AAAO*3. Pt denied any pain or discomfort and sitting up in chair for breakfast and lunch. Pt sitting at bedside with mom and call burciaga in reach.
[2023-11-23] MEDS: NOVOLOG FLEXPEN-MODERATE RESISTANCE 1 UNITS SC ×2 (13:03→17:33)
[2023-11-23 17:19] LABS: Glucose - Point of Care 151 mg/dl (70-99)
[2023-11-23] MEDS: LIPITOR 80 MG PO (17:33)
--- NOTE | 2023-11-23 20:50 | PTCARENOTE ---
Pt. received at change of shift. Pt. seen and assessed in room. Pt. AOx3, VS WNL. Pt. verbalizes understanding of plan of care, scheduled for CABG on 11/24. Nitro gtt running at 35mcg. No complaints of pain at this time. Continuing to monitor the pt.
[2023-11-23 22:10] LABS: Glucose - Point of Care 154 mg/dl (70-99)
[2023-11-24] VITALS (9 sets, daily range): BP systolic 113–140; BP diastolic 60–106; BMI 40.8
[2023-11-24] MEDS: NITROGLYCERIN PREMIX 250 IV (04:11)
--- NOTE | 2023-11-24 06:44 | W.PN.CT ---
Today's Communication / Plan
-
Plan:
-No CP overnight. On NTG gtt
-Consider heparin gtt if further CP
-Cont. to hold ARI-I/ARBs in preparation for OR
-Ongoing preop workup and medical optimization
-For CABG by Dr. Saleem tomorrow 11/24
-Will cont. to closely monitor
Assessment / Plan
-
Assessment:
-Severe 3vCAD
-T2DM (A1C 6.6)
-Hyperlipidemia
-Class 3 obesity (BMI 42.3)
-Current tobacco use
-Anxiety/Depression
-S/P Cervical spine fusion (C3-5)
-S/P Nasal septal fx reduction
Discussed patient care with: Cardiology, Nursing, Pharmacy and Care Team
Subjective
-
Date of Service: November 24, 2023
No major issues overnight. Denies CP/SOB
Objective Data
-
Lab Results
11/21/23 03:32
11/23/23 03:23
PT 13.8 Sec (11.4-14.6) 11/20/23 04:12
INR 1.06 11/20/23 04:12
APTT 28.6 Sec (23.4-35.0) 11/20/23 04:12
Vital Signs
Vital Signs
Temp Pulse Resp BP Pulse Ox
98 F 75 18 115/60 96
11/24/23 03:57 11/24/23 03:49 11/23/23 19:33 11/24/23 03:49 11/23/23 23:06
CT Intake/Output/Weight
11/23/23 11/23/23 11/24/23
06:59 18:59 06:59
Intake Total 480 / 680 200 / 680
Balance 480 / 680 200 / 680
SaO2: 96 (RA)
Physical Exam
-
General: Awake, Oriented and AOx3
Cardiovascular: No Murmurs, No Rub and No Gallop
Respiratory: Clear
Extremities: No Edema
Data Reviewed
-
Lab Results: Results Reviewed
Medications: Active Meds Reviewed
Chest X-Ray: Report Reviewed
ECG: Report Reviewed and Image Reviewed
[2023-11-24 08:11] LABS: Glucose - Point of Care 142 mg/dl (70-99)
[2023-11-24] MEDS: TOPROL XL 12.5 MG PO (08:17)
[2023-11-24] MEDS: TOPROL XL 25 MG PO (08:17)
[2023-11-24] MEDS: LOW STRENGTH ASPIRIN 81 MG PO (08:17)
[2023-11-24] MEDS: AMARYL 1 MG PO (08:17)
[2023-11-24] MEDS: NOVOLOG FLEXPEN-MODERATE RESISTANCE SC (08:18)
--- NOTE | 2023-11-24 09:33 | W.PN.CARDCBS ---
Addendum entered and electronically signed by Terry Flores MD 11/24/23 10:54:
I saw and examined the patient.
The MANAGER APPLICATION or PA's note was reviewed and I agree with the note.
Comment: General: Well developed, well nourished in NAD.
Neck: Supple, no JVD, HJR, carotids +2 B/L, no bruits bilaterally.
Heart: Non displaced PMI, RRR, no murmurs, No S3, S4, no rubs.
Lungs: Clear to auscultation bilaterally, no wheeze, rhonchi, rubs bilaterally,
normal expiratory phase.
Extremities: No clubbing, cyanosis or edema bilaterally.
Neuro: Grossly nonfocal, awake, alert and oriented x3.
He denies chest pain or shortness of breath. Stable cardiology status for CABG on 11/24. Continue aspirin, statin, Toprol. Continue IV nitroglycerin drip.
Original Note:
Today's Communication / Plan
-
CABG planned for 11/25/2023
Continue ASA, statin, Toprol
Remains on NTG gtt for pain control
Impression / Plan
-
.
PCP: Nirmal Jimenez
Garment Parts Cutter Hand:Dr. Berry
IMPRESSION:
-Multivessel coronary artery disease, following cath for abnormal stress testing
-NSVT, 10 beat run November 20
-Type 2 diabetes
-Morbid obesity
-Mixed hyperlipidemia
-Anxiety disorder
Echo Nov 19 2023: EF 55 to 60% with no significant valvular disease.
Left heart Cath (R radial) 11/19/2023:
LEFT MAIN: Normal
LEFT ANTERIOR DESCENDING: Proximal calcified 60-70% stenosis involving the origin of D1. 50% mid and 50-60% distal stenosis. The first diagonal branch is small.
CIRCUMFLEX (non-dominant): 70-80% proximal OM1 near its origin. 80% mid circumflex just before the origin of OM 2. OM 2 is large and bifurcates to a larger and smaller daughter branch.
RIGHT CORONARY ARTERY: Heavily calcified with a long area of diffuse atherosclerotic disease in the midportion of the vessel. The RCA becomes occluded/subtotally occluded beyond the second RV marginal branch and the distal vessel is noted to fill
via right to right and [id number] collaterals.
Plan:
Multivessel coronary artery disease found on catheterization. Plan for CABG 11/25/23
EF is preserved
Cont IV nitro for pain control. CP may have a GI component
ARI inhibitor placed on hold in anticipation of CABG. Would resume postoperatively if able
Hyperlipidemia lipids 11/20/2023 TC 104, HDL 41, LDL 38, triglycerides 125. Now on higher intensity atorvastatin 80 mg. Continue
Diabetes, hemoglobin A1c 6.6%. Continue glimepiride. Was on Farxiga as outpatient. On hold in anticipation of CABG. Resumed once cleared from surgical standpoint.
No recurrent NSVT per my review of tele
Keep Potassium greater than 4 and magnesium greater than 2. Levels are stable.
Check CMP in am
Toprol XL increased to 37.5 mg daily Nov 20.
If he has recurrent NSVT or significant ventricular ectopy, will consider starting amiodarone.
Discussed with nursing, patient
Progress Note - Garment Parts Cutter Hand
Subjective
Date of Service: November 24, 2023
Patient seen and examined. Patient reports he is feeling well. Sitting up in chair eating breakfast. Remains on nitro drip and denies chest or GI discomfort.
Objective
Labs:
11/21/23 03:32
11/23/23 03:23
Labs
Hgb 15.1 g/dL (13.0-18.0) 11/21/23 03:32
Hct 43.1 % (39.0-52.0) 11/21/23 03:32
Plt Count 205 10^3/uL (130-400) 11/21/23 03:32
PT 13.8 Sec (11.4-14.6) 11/20/23 04:12
INR 1.06 11/20/23 04:12
APTT 28.6 Sec (23.4-35.0) 11/20/23 04:12
Sodium 137 mmol/L (135-145) 11/23/23 03:23
Potassium 4.8 mmol/L (3.5-5.1) 11/23/23 03:23
BUN 13 mg/dl (9-20) 11/23/23 03:23
Creatinine 0.6 mg/dL (0.7-1.3) L 11/23/23 03:23
Glucose 120 mg/dl (70-99) H 11/23/23 03:23
Vital Signs and I&O:
Vital Signs
Temp Pulse Resp BP Pulse Ox
98.5 F 90 16 129/80 98
11/24/23 08:01 11/24/23 08:17 11/24/23 08:01 11/24/23 08:17 11/24/23 09:27
Vital Signs
Temp Pulse Resp BP Pulse Ox
98.5 F 90 16 129/80 98
11/24/23 08:01 11/24/23 08:17 11/24/23 08:01 11/24/23 08:17 11/24/23 09:27
Intake & Output
11/22/23 11/23/23 11/24/23 11/25/23
06:59 06:59 06:59 06:59
Intake Total 925 / 925 680 / 680 480 / 480
Output Total 350 / 350
Balance 575 / 575 680 / 680 480 / 480
Physical Exam
Physical Exam
GEN: No distress, awake, Ox3
HEENT: supple, anicteric, mmm
LUNGS: CTA, no wheezes/rales
CV: Reg, S1/S2, no murmur, rub or gallop
ABD: soft, BS+, NT/ND
EXT: No edema, clubbing or cyanosis
NEURO: Gross non-focal
SKIN: No rash, warm, dry, pale
--- NOTE | 2023-11-24 10:57 | PTCARENOTE ---
Rec'd pt at change of shift. Pt on TELE monitor in NSR with bradycardic periods, VSS, and AAAO*3. Nitro ggt infusing at 35mcg per minute per order. Patient denied any pain or discomfort and verbalized understanding of upcoming procedure. Pt oob
sitting in chair for breakfast with call burciaga in reach.
[2023-11-24 11:59] LABS: Glucose - Point of Care 169 mg/dl (70-99)
[2023-11-24] MEDS: NOVOLOG FLEXPEN-MODERATE RESISTANCE 1 UNITS SC ×2 (12:00→16:43)
[2023-11-24 16:43] LABS: Glucose - Point of Care 189 mg/dl (70-99)
[2023-11-24] MEDS: LIPITOR 80 MG PO (17:28)
[2023-11-24 22:17] LABS: Glucose - Point of Care 131 mg/dl (70-99)
[2023-11-24] MEDS: XANAX 0.25 MG PO (22:32)
--- NOTE | 2023-11-24 23:41 | PTCARENOTE ---
Pt. received at change of shift. Pt. seen and assessed in room. Pt. AOx3, VS WNL. Pt. verbalizes understanding of CABG prep and POC for scheduled CABG on 11/24. No complaints of pain at this time. CABG prep initiated. Continuing to monitor the
patient at this time.
[2023-11-25] VITALS (24 sets, daily range): BP systolic 96–141; BP diastolic 68–84
--- NOTE | 2023-11-25 03:01 | DOWNTIME ---
There was a [employer] Client Piece Meat Trimmer Downtime on 10/28/2023 from 0100 to 10/28/2023 at 0252. Downtime documentation of patient's care, including medication administrations, has been reconciled in the electronic record per guidelines. Refer to the
patient's paper chart under the miscellaneous tab to see printed paper medication records and downtime forms.
[2023-11-25 03:13] LABS: % Basophils 0.6 % (0-2); % Eosinophils 5.9 % (0-6); % Immature Granulocytes 0.3 % (0-0.5); % Lymphocytes 20.6 % (20.5-51.1); % Monocytes 9.1 % (1.7-9.3); % Neutrophils 63.5 % (42.2-75.2); Absolute Basophils 0.1 10^3/uL (0-0.2); Absolute Eosinophils 0.5 10^3/uL (0-0.7); Absolute Lymphocytes 1.6 10^3/uL (1.2-3.4); Absolute Monocytes 0.7 10^3/uL (0.1-0.6); Hematocrit 39.9 % (39.0-52.0); Hemoglobin 14.2 g/dL (13.0-18.0); Mean Corp Hgb Conc. 35.6 g/dL (33.0-37.0); Mean Corpuscular Hgb 30.9 pg (27.0-31.0); Mean Corpuscular Volume 86.9 fL (80.0-94.0); Mean Platelet Volume 8.7 fL (7.4-10.4); Nucleated Red Blood Cells % 0 % (-); Platelet Count 224 10^3/uL (130-400); Red Blood Cell Count 4.59 10^6/uL (4.70-6.10); Red Cell Dist. Width 12.7 % (11.5-14.5); White Blood Cell Count 7.9 10^3/uL (4.8-10.8)
[2023-11-25 03:33] LABS: ALT (SGPT) 23 U/L (0-50); AST (SGOT) 21 U/L (17-59); Albumin 3.6 g/dl (3.5-5.0); Alkaline Phosphatase 59 U/L (38-126); Blood Urea Nitrogen 14 mg/dl (9-20); Calcium 9.2 mg/dl (8.4-10.2); Carbon Dioxide 24 mmol/L (22-30); Chloride 103 mmol/L (98-107); Estimated Creatinine Clearance > 125 ml/min; Glucose 123 mg/dl (70-99); Potassium 4.3 mmol/L (3.5-5.1); Sodium 137 mmol/L (135-145); Total Bilirubin 0.7 mg/dl (0.2-1.3); Total Protein 6.1 g/dl (6.3-8.2); eGFR > 60.00
[2023-11-25] MEDS: MAGNESIUM OXIDE 500 MG PO (05:42)
[2023-11-25] MEDS: PROTONIX 40 MG PO (05:42)
[2023-11-25] MEDS: BACTROBAN 2% OINTMENT 1 APPLIC NASAL ×2 (05:42→19:21)
[2023-11-25] MEDS: LOPRESSOR 25 MG PO (05:42)
--- NOTE | 2023-11-25 05:56 | PTCARENOTE ---
CABG prep completed. Pt. belongings packed up by patient and transferred into new room 2264 by RN. Awaiting CVOR handoff. Continuing to monitor the patient at this time.
[2023-11-25 07:17] LABS: ACT+ - POC 101 Seconds (82-134)
--- NOTE | 2023-11-25 07:18 | W.CVOR.SURPR ---
CVOR Surgeon Immed Pre Op
-
I have examined this patient prior to performance of the scheduled procedure.
The patient's condition is unchanged from the time of the dictated/written History and
Physical and the patient is able to undergo the scheduled procedure.
[2023-11-25 07:39] LABS: Urine Albumin Negative (Neg - Trace); Urine Bilirubin Negative (Negative); Urine Character Clear (Clear); Urine Color Yellow; Urine Glucose Negative (Negative); Urine Ketone Negative (Negative); Urine Leukocyte Negative (Negative); Urine Nitrite Negative (Negative); Urine Occult Blood Negative (Negative); Urine Specific Gravity 1.015 (<1.030); Urine Urobilinogen Negative (Neg - 1+)
--- NOTE | 2023-11-25 09:48 | CM ---
Patient in OR today for CABG.
Reviewed initial assessment. Pt. resides w. mother in a private, 2 story home w/ 3-4 ADRIANO.
Functionally, patient is indep. w/ ADLs, mobility without the use of any assisted device.
Plan is for home w/ CT Transitional Care RN.
CM to follow.
[2023-11-25 10:09] LABS: ACT+ - POC 704 Seconds (82-134)
[2023-11-25 10:47] LABS: B.E. - POC -0.4 mmol/L; Glucose - POC 139 mg/dl (70-99); HCO3 - POC 25 mmol/L (21-29); Hematocrit - POC 41 % PCV (42-52); Hemodilution- POC No; Hemoglobin Calculated - POC 13.9; Ionized Calcium - POC 1.23 mmol/L (1.12-1.27); PCO2 - POC 42 mmHg (35-45); PO2 - POC 511 mmHg (80-100); POC Comment PRE; Sodium - POC 139 mmol/L (135-145); pH - POC 7.38 (7.35-7.45)
[2023-11-25 10:55] LABS: ACT+ - POC 503 Seconds (82-134)
[2023-11-25 11:15] LABS: B.E. - POC 1.4 mmol/L; Glucose - POC 204 mg/dl (70-99); HCO3 - POC 26 mmol/L (21-29); Hematocrit - POC 30 % PCV (42-52); Hemodilution- POC Yes; Hemoglobin Calculated - POC 10.3; Ionized Calcium - POC 1.06 mmol/L (1.12-1.27); PCO2 - POC 41 mmHg (35-45); PO2 - POC 364 mmHg (80-100); POC Comment CPB; Potassium - POC 5.1 mmol/L (3.6-5.0); Sodium - POC 136 mmol/L (135-145); pH - POC 7.41 (7.35-7.45)
[2023-11-25 11:28] LABS: ACT+ - POC 544 Seconds (82-134)
--- NOTE | 2023-11-25 11:39 | CM ---
Chart reviewed. Patient is in the OR today. Patient is independent of ADLS, lives with his mother in a 2 STH, 3-4 ADRIANO, 0 DME. Plan is for the patient to return home with CT Transitional RN.
[2023-11-25 11:55] LABS: B.E. - POC 2.9 mmol/L; Glucose - POC 175 mg/dl (70-99); HCO3 - POC 28 mmol/L (21-29); Hematocrit - POC 32 % PCV (42-52); Hemodilution- POC Yes; Hemoglobin Calculated - POC 10.9; Ionized Calcium - POC 1.15 mmol/L (1.12-1.27); O2 Saturation %Calculated-POC 99.9 5 (92-96); PCO2 - POC 46 mmHg (35-45); PO2 - POC 346 mmHg (80-100); POC Comment CPB; Potassium - POC 4.2 mmol/L (3.6-5.0); Sodium - POC 139 mmol/L (135-145)
[2023-11-25 12:02] LABS: ACT+ - POC 456 Seconds (82-134)
[2023-11-25 12:20] LABS: ACT+ - POC 540 Seconds (82-134)
[2023-11-25 12:32] LABS: B.E. - POC -0.2 mmol/L; Glucose - POC 166 mg/dl (70-99); HCO3 - POC 26 mmol/L (21-29); Hematocrit - POC 32 % PCV (42-52); Hemodilution- POC Yes; Ionized Calcium - POC 1.15 mmol/L (1.12-1.27); O2 Saturation %Calculated-POC 99.7 5 (92-96); PCO2 - POC 45 mmHg (35-45); PO2 - POC 219 mmHg (80-100); POC Comment CPB; Potassium - POC 4.4 mmol/L (3.6-5.0); Sodium - POC 139 mmol/L (135-145); pH - POC 7.36 (7.35-7.45)
[2023-11-25 13:28] LABS: B.E. - POC 1.3 mmol/L; Glucose - POC 185 mg/dl (70-99); HCO3 - POC 26 mmol/L (21-29); Hematocrit - POC 36 % PCV (42-52); Hemodilution- POC Yes; Hemoglobin Calculated - POC 12.4; Ionized Calcium - POC 1.11 mmol/L (1.12-1.27); O2 Saturation %Calculated-POC 99.8 5 (92-96); PCO2 - POC 41 mmHg (35-45); PO2 - POC 212 mmHg (80-100); POC Comment WARM; Potassium - POC 4.8 mmol/L (3.6-5.0); Sodium - POC 140 mmol/L (135-145); pH - POC 7.41 (7.35-7.45)
[2023-11-25 13:31] LABS: ACT+ - POC 109 Seconds (82-134)
[2023-11-25 13:46] LABS: B.E. - POC 0.1 mmol/L; Glucose - POC 149 mg/dl (70-99); HCO3 - POC 26 mmol/L (21-29); Hematocrit - POC 35 % PCV (42-52); Hemodilution- POC Yes; Hemoglobin Calculated - POC 11.8; Ionized Calcium - POC 1.31 mmol/L (1.12-1.27); O2 Saturation %Calculated-POC 95.6 5 (92-96); PCO2 - POC 45 mmHg (35-45); PO2 - POC 83 mmHg (80-100); POC Comment POST; Potassium - POC 3.8 mmol/L (3.6-5.0); Sodium - POC 139 mmol/L (135-145); pH - POC 7.36 (7.35-7.45)
--- NOTE | 2023-11-25 14:06 | W.IMMPOSTOP ---
Surgical Immed Post Op Note
-
CARDIAC SURGERY OPERATIVE NOTE:
Preoperative Dx:
MVCAD
DM
HTN/HLD
Anxiety
Active smoking (1/2 PPD)
Morbid obesity
Postoperative Dx:
Same
Procedures:
1) Median sternotomy
2) Endoscopic harvest of L RA
3) Endoscopic harvest of RLE GSV
4) Takedown of LOPEZ (narrow pedicle)
5) CABG x 4 (LOPEZ to LAD, RA to OM1, GSV to OM2, GSV to PDA)
6) ELAA w/ 40mm AtriClip
Surgeon:
Rikki Saleem M.D.
Assistants:
Linda Chin PBibiA.-CBibi; endoscopic harvest/prep of RLE GSV; catering assistant throughout; closure
Aaron Avalos P.A.-C.; endoscopic harvest/prep of L RA
Ron WatersA.-CBibi; closure ([id number])
Anesthesia:
Jh Ontiveros M.D. and Rodolfo Sharpe, AlexR.N.A.
Perfusion:
Ricky Fabian C.C.P.; CPB: 150min, XC: 96min
Findings:
LOPEZ was a healthy, slightly thin walled vessel w/ very brisk blood flow; ELD 2.75mm
L RA was healthy vessel w/ ELD 2.5mm - good back-bleeding from intact palmar arch
GSV was good conduit w/ variable ELD from 3.0-5.5mm, there were several variocities that were able to be excluded
LAD was visible on the epicardial surface, very dense calcific disease throughout, anastomosis performed in proximal segment of distal 1/3 of this vessel. At this location, ELD 2.25mm w/ minor/scattered calcifications.
OM1 was visible on the epicardial surface, moderate scattered calcifications, ELD 2.50mm; anastomosis performed over 1.5mm shunt to facilitate visualization secondary to non-coronary collateral flow.
OM2 was visible on the epicardial surface, moderate scattered calcifications, ELD 2.50mm
PDA was visible on the epicardial surface w/ dense scattered calcifications, ELD 2.25
LOIS was small w/ windsock morphology
Post-RICHIE: normal biventricular function w/ no sig VHD
Pt w/ non-compliant chest wall despite paralytics
Complications:
None
Implants:
CT x 4 (B/L pleural, inferior/anterior diaphragmatic; anterior mediastinal)
Sternal wires x 7
Sternal 'Square' plates x 2 w/ 8 - 12mm screws
Transfusions:
None
Condition:
74 sinus w/ isoelectric STs (0.1/0.0), 109/60, CVP 9, 100%
GTTS: levophed OFF, insulin 1, precedex 0.5, dobutamine 1.5, cardizem 5
Stable/guarded to CVICU
--- NOTE | 2023-11-25 14:43 | CON.INTV ---
Consultation
Consultation Request
Date/Time Consultation Requested: 11/25/2023-3 PM
Date/Time Consultation Performed: 11/25/2023-3 PM
Requesting Provider: Dr. Saleem
Performing Provider: Dr. Sanchez
Reason for Consultation: Postop ventilator/critical care management
Medical History
-
Chief Complaint: CAD
History of Present Illness:
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
Patient is seen postoperatively on a ventilator and sedated and thus review of systems could not be obtained. Intraoperative events noted and current pressors/inotropes/ventilator settings were reviewed.
Past Medical History
Past Medical History: None (Hyperlipidemia. Diabetes. Cigarette smoker. Anxiety/depression. Obesity-BMI 42. Herniated cervical disc. C3-5 fusion. Colon polypectomy 2020. Nasal septal fracture open reduction.)
Social History
Tobacco: Smoker
Drug: None
Personal: Single
Occupational Exposures: No known asbestos exposure
Environmental Exposures: No known tuberculosis exposure
Family History
Family History: Other (Father-CABG.)
Allergies / Home Medications
Allergies
Allergy/AdvReac Type Severity Reaction Status Date / Time
No Known Allergies Allergy Unverified 12/28/19 06:58
Home Medications
�Medication �Instructions �Recorded �Confirmed �Last Taken �Type
metformin 500 mg tablet 1,000 mg PO BID 12/27/19 11/19/23 11/18/23 07:00 History
simvastatin 40 mg tablet 40 mg PO QPM 12/27/19 11/19/23 11/17/23 20:00 History
aspirin 81 mg tablet,delayed 81 mg PO DAILY 12/28/19 11/19/23 11/18/23 07:00 History
release (Ecotrin Low Strength)
dapagliflozin propanediol 5 mg 5 mg PO DAILY 11/19/23 11/19/23 11/18/23 07:00 History
tablet (Farxiga)
glimepiride 1 mg tablet 1 mg PO DAILY 11/19/23 11/19/23 11/18/23 07:00 History
tirzepatide 5 mg/0.5 mL 5 mg SC QWEEK 11/19/23 11/19/23 11/16/23 07:00 History
subcutaneous pen injector
(Mounjaro)
Review of Systems
-
Unable to Obtain full review of systems at this time due to: Patient Intubation
Vitals / Labs / Diagnostic Testing
Vital Signs
Temp Pulse Resp BP Pulse Ox
98.5 F 63 20 126/76 97
11/25/23 03:09 11/25/23 06:40 11/25/23 03:09 11/25/23 05:42 11/25/23 03:09
Diagnostic Testing:
Physical Exam
-
Exam:
Well-nourished and well-developed in no apparent distress
HEENT-atraumatic, normocephalic, oral tracheal intubation
Heart-regular rate and rhythm-no murmurs, rubs or gallops
Chest-clear to auscultation, no wheezes, crackles, median sternotomy bandage is not removed
Abdomen soft nondistended
Extremities-no cyanosis, clubbing, edema and good peripheral pulses
Integument-intact, no rashes, lesions or ecchymosis
Neurologically not alert, not oriented, not moving any of his extremities sedated on a ventilator
Assessment
-
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
Significant CAD with preoperative preserved EF
Status post CABG x 4-Stacey-LAD, RA to OM1, GSV-OM2, GSV-PDA, left atrial clip-Dr. Saleem 11/25/2023
Hyperglycemia
Conditions present prior to admission:
Hyperlipidemia.
Diabetes.
Cigarette smoker.
Anxiety/depression.
Obesity-BMI 42.
Herniated cervical disc.
C3-5 fusion. Colon polypectomy 2020. Nasal septal fracture open reduction.
Plan
Ventilator settings reviewed
FiO2 will be weaned
Minute ventilation will be adjusted
Arterial blood gases will be monitored
Spontaneous breathing trial will be attempted with hopeful extubation after anesthesia/sedation wear off
Pulmonary artery catheter was not placed with preserved EF preoperatively
Pressors/antihypertensive/inotropes/diuretics will be provided as needed-currently on some nitroglycerin, dobutamine, and some Cardene
Monitor chest tube output
Monitor hemoglobin
Monitor platelet count and coags
Transfuse blood product if needed
CT surgery following chest tubes
Monitor blood sugar
Insulin drip per protocol
Aspiration precautions
VAP prevention protocol
DVT prophylaxis
Early nutrition
Early mobilization
Significant risk for underlying sleep disordered breathing/obstructive sleep apnea-recommend outpatient pulmonary/sleep disorders [id number], sleep study, yearly low-dose lung cancer screening CT, smoking cessation counseling, etc.
Critical care statement: A total of 50 minutes of critical care time was provided for this patient today. This includes management of ventilator, spontaneous breathing trial, arterial blood gases, pressors, of unstable vital signs, evaluation of the
patient at bedside, reviewing the patient's pertinent medical records including radiographs, microbiology, laboratory evaluations, and discussion with primary team and critical care nursing.
Diagnostic data:
Chest x-ray 11/23/2023-lungs clear
CT [id number] 07/23/2023-no pulmonary mass, severe coronary artery calcifications
CT chest 11/19/2023-large volume coronary artery calcifications, small anterior pericardial effusion, thoracic aorta within limits of normal
Echocardiogram 11/19/2023-EF 55-60%, normal diastolic function, PA systolic 15-20
Transesophageal echocardiogram 11/25/2023-EF 50-55%, stage I diastolic dysfunction, moderate left atrial enlargement, no thrombus or mass seen, mild tricuspid regurgitation
PET-myocardial scan 11/10/2023-perfusion imaging reveals a medium in size moderate severity partially reversible mid to distal anterior perfusion defect and a medium in size moderate in severity predominantly reversible inferior apical perfusion
defect, EF 56%, high risk due to multiple areas of ischemia
Data Reviewed
-
Radiology: Report reviewed by me
CT Scan: Report reviewed by me
Medical Tests (Nuc Med, Echo etc): Report reviewed by me
Labs: Labs reviewed by me
Old Records: Reviewed
Critical Care Time (in minutes): 50
[2023-11-25] MEDS: CARDENE 200 IV (14:50)
[2023-11-25 14:51] LABS: Glucose - Point of Care 140 mg/dl (70-99)
[2023-11-25 14:55] LABS: B.E. -0.2 mmol/L; HCO3 25.9 mmol/L (21-28); Hematocrit 37.5 % (39.0-52.0); Hemoglobin 13.1 g/dL (13.0-18.0); Ionized Calcium 1.19 mMOL/L (1.15-1.33); O2 Saturation % 98.9 % (94-98); PCO2 47 mmHg (35-48); PO2 98 mmHg (83-108); Platelet Count 217 10^3/uL (130-400); Potassium 4.4 mMOL/L (3.5-5.1); Sodium 134 mMOL/L (136-145); pH 7.35 (7.35-7.45)
[2023-11-25 15:02] LABS: Mixed Venous O2 Saturation 81.1 %
[2023-11-25 15:05] LABS: APTT 32.1 Sec (23.4-35.0)
[2023-11-25 15:13] LABS: INR 1.36; PT 16.8 Sec (11.4-14.6)
[2023-11-25 15:22] LABS: Blood Urea Nitrogen 15 mg/dl (9-20); Estimated Creatinine Clearance > 125 ml/min; Glucose 139 mg/dl (70-99); Magnesium 2.6 mg/dl (1.6-2.3)
[2023-11-25] MEDS: TYLENOL PO (15:26)
[2023-11-25] MEDS: NOVOLOG FLEXPEN SC ×2 (15:26→16:15)
[2023-11-25] MEDS: ANCEF 15 MG IV (15:26)
[2023-11-25] MEDS: NSS 500 IV (15:26)
[2023-11-25] MEDS: ANCEF 10 IV (15:26)
[2023-11-25] MEDS: NEURONTIN PO ×2 (15:26→16:15)
[2023-11-25] MEDS: PACERONE PO ×2 (15:26→21:14)
[2023-11-25] MEDS: TOPROL XL PO ×2 (15:27)
[2023-11-25] MEDS: LOW STRENGTH ASPIRIN PO (15:27)
[2023-11-25] MEDS: AMARYL PO (15:27)
[2023-11-25] MEDS: NOVOLOG FLEXPEN-MODERATE RESISTANCE SC ×2 (15:27)
[2023-11-25 15:34] LABS: Glucose - Point of Care 173 mg/dl (70-99)
--- NOTE | 2023-11-25 15:36 | PTCARENOTE ---
Pt received from [facility] at 1440; Sedated and intubated; NSR rhythm on monitor; VSS; +2 DP, +2 right radial, and left ulnar pulse present by doppler; Lungs diminished at bases; ETT size 8 positioned and secured at 24 cm right lip; Ventilator settings
SIMV 12/600/5/7 FiO2 60%; CTx4 to -20 cm wall suction draining bloody drainage - no air leak, tidaling, or crepitus noted; Hypoactive BS; Alfaro catheter in place draining clear, yellow urine; Right groin puncture site approximated with scant amount
of old drainage, sternal midline incision covered with aquacell and CDI, left arm wrapped in Mariano wrap - CDI, right leg wrapped in Mariano wrap - CDI; A-line in right radial artery, [place] floated in right IJ Cordis - all lines zeroed and level; PIVx2 -
#18 R FA and #20 R FA; Levo/insulin/precedex/cardene/cardizem/nitro infusing - see nursing flowsheets for further details; See nursing documentation for further details
[2023-11-25 16:12] LABS: Glucose - Point of Care 183 mg/dl (70-99)
--- NOTE | 2023-11-25 16:13 | W.PN.CARDCBS ---
Today's Communication / Plan
-
Plan:
1. Multivessel coronary artery disease found on catheterization. s/p CABG x 4 with WHITE to LAD, radial artery to OM1, saphenous vein graft to OM 2 and saphenous vein graft to RPDA, ELAA with [address] Rikki Saleem on 11/25/23, POD #0,
-Wean vent and pressors as able.
-ECG post op with no acute ischemic changes.
-Defer management of cardene and nitro to CT surgery.
-EF is preserved by echo on 11/20
-ARI inhibitor placed on hold in anticipation of CABG. Will resume postoperatively as needed base on hemodynamics.
-Cont daily baby aspirin.
2. Hyperlipidemia lipids 11/20/2023 TC 104, HDL 41, LDL 38, triglycerides 125.
-Now on higher intensity atorvastatin 80 mg. Continue
3. Diabetes, hemoglobin A1c 6.6%.
-Had been continued on glimeride.
-Was on Farxiga as outpatient. On hold due to CABG. Resume once cleared from surgical standpoint post-op.
4. NSVT pre-op
-Keep Potassium greater than 4 and magnesium greater than 2.
-Toprol XL had been increased to 37.5 mg daily Nov 20. On hold for now.
Impression / Plan
-
.
PCP: Nirmal Jimenez
Dinkey Motor Operator:Dr. Berry
IMPRESSION:
-Multivessel coronary artery disease, following cath for abnormal stress testing s/p CABG x 4 with WHITE to LAD, radial artery to OM1, saphenous vein graft to OM 2 and saphenous vein graft to RPDA, ELAA with [address] Rikki Saleem on
11/25/23, POD #0,
-NSVT, 10 beat run November 20
-Type 2 diabetes
-Morbid obesity
-Mixed hyperlipidemia
-Anxiety disorder
Echo 11/19/2023: EF 55 to 60% with no significant valvular disease.
Left heart Cath (R radial) 11/19/2023:
LEFT MAIN: Normal
LEFT ANTERIOR DESCENDING: Proximal calcified 60-70% stenosis involving the origin of D1. 50% mid and 50-60% distal stenosis. The first diagonal branch is small.
CIRCUMFLEX (non-dominant): 70-80% proximal OM1 near its origin. 80% mid circumflex just before the origin of OM 2. OM 2 is large and bifurcates to a larger and smaller daughter branch.
RIGHT CORONARY ARTERY: Heavily calcified with a long area of diffuse atherosclerotic disease in the midportion of the vessel. The RCA becomes occluded/subtotally occluded beyond the second RV marginal branch and the distal vessel is noted to fill
via right to right and [id number]-ilodk collaterals.
Plan:
1. Multivessel coronary artery disease found on catheterization. s/p CABG x 4 with WHITE to LAD, radial artery to OM1, saphenous vein graft to OM 2 and saphenous vein graft to RPDA, ELAA with [address] Rikki Saleem on 11/25/23, POD #0,
-Wean vent and pressors as able.
-ECG post op with no acute ischemic changes.
-Defer management of cardene and nitro to CT surgery.
-EF is preserved by echo on 11/20
-ARI inhibitor placed on hold in anticipation of CABG. Will resume postoperatively as needed base on hemodynamics.
-Cont daily baby aspirin.
2. Hyperlipidemia lipids 11/20/2023 TC 104, HDL 41, LDL 38, triglycerides 125.
-Now on higher intensity atorvastatin 80 mg. Continue
3. Diabetes, hemoglobin A1c 6.6%.
-Had been continued on glimeride.
-Was on Farxiga as outpatient. On hold due to CABG. Resume once cleared from surgical standpoint post-op.
4. NSVT pre-op
-Keep Potassium greater than 4 and magnesium greater than 2.
-Toprol XL had been increased to 37.5 mg daily Nov 20. On hold for now.
Progress Note - Dinkey Motor Operator
Subjective
Date of Service: November 25, 2023
Intubated and Sedated.
Objective
Labs:
11/25/23 14:38
Labs
Hgb 13.1 g/dL (13.0-18.0) 11/25/23 14:38
Hct 37.5 % (39.0-52.0) L 11/25/23 14:38
Plt Count 217 10^3/uL (130-400) 11/25/23 14:38
PT 16.8 Sec (11.4-14.6) H 11/25/23 14:38
INR 1.36 11/25/23 14:38
APTT 32.1 Sec (23.4-35.0) 11/25/23 14:38
Sodium 137 mmol/L (135-145) 11/25/23 03:04
Potassium 4.3 mmol/L (3.5-5.1) 11/25/23 03:04
BUN 15 mg/dl (9-20) 11/25/23 14:38
Creatinine 0.6 mg/dL (0.7-1.3) L 11/25/23 14:38
Glucose 139 mg/dl (70-99) H 11/25/23 14:38
Vital Signs and I&O:
Vital Signs
Temp Pulse Resp BP Pulse Ox
96.6 F L 81 14 107/75 94
11/25/23 16:00 11/25/23 16:00 11/25/23 16:00 11/25/23 16:00 11/25/23 16:00
Vital Signs
Temp Pulse Resp BP Pulse Ox
96.6 F L 81 14 107/75 94
11/25/23 16:00 11/25/23 16:00 11/25/23 16:00 11/25/23 16:00 11/25/23 16:00
Intake & Output
11/23/23 11/24/23 11/25/23 11/26/23
06:59 06:59 06:59 06:59
Intake Total 680 / 680 1023.6 / 1023.6 179.4 / 179.4
Output Total 290 / 290
Balance 680 / 680 1023.6 / 1023.6 -110.6 / -110.6
Physical Exam
Physical Exam
GEN: No distress, Intubated and sedated
HEENT: supple, anicteric, mmm, chest tubes in place
LUNGS: CTA anteriorly, no wheezes/rales, sternal dressing in place c/d/i
CV: Reg, S1/S2, no murmur, +pericardial rub, no gallop
ABD: soft, BS+, NT/ND
EXT: No edema, clubbing or cyanosis
NEURO: Gross non-focal
SKIN: No rash, warm, dry, pale
--- NOTE | 2023-11-25 16:41 | PTCARENOTE ---
RT in room and pt placed on CPAP trial. ABG's due at 1710
[2023-11-25 17:13] LABS: Glucose - Point of Care 131 mg/dl (70-99)
[2023-11-25 17:22] LABS: B.E. -0.2 mmol/L; HCO3 24.8 mmol/L (21-28); Ionized Calcium 1.12 mMOL/L (1.15-1.33); O2 Saturation % 96.5 % (94-98); PCO2 41 mmHg (35-48); PO2 70 mmHg (83-108); Potassium 4.5 mMOL/L (3.5-5.1); Sodium 133 mMOL/L (136-145); pH 7.39 (7.35-7.45)
--- NOTE | 2023-11-25 17:35 | RESPNOTE ---
Respiratory: patient extubated @ 1730 without incident, no stridor no wheeze.
--- NOTE | 2023-11-25 17:36 | PTCARENOTE ---
ABG's reviewed with VIVI Johnson; RT at bedside; Pt extubated at 1730; Pt placed on 6L NC; IS 1000 ml.
[2023-11-25] MEDS: LIPITOR PO (17:40)
[2023-11-25] MEDS: DILAUDID 0.5 MG IV ×2 (17:54→23:29)
[2023-11-25 18:03] LABS: Glucose - Point of Care 144 mg/dl (70-99)
[2023-11-25] MEDS: CALCIUM CHLORIDE 10% SYRINGE 50 ML IV (18:12)
[2023-11-25] MEDS: CALCIUM CHLORIDE 10% SYRINGE 50 MG IV (18:12)
[2023-11-25 18:35] LABS: Hematocrit 38.1 % (39.0-52.0); Hemoglobin 13.4 g/dL (13.0-18.0); Platelet Count 238 10^3/uL (130-400)
[2023-11-25 19:01] LABS: Glucose - Point of Care 131 mg/dl (70-99)
[2023-11-25] MEDS: LOW STRENGTH ASPIRIN 81 MG PO (19:05)
[2023-11-25] MEDS: ANCEF 5 IV (19:22)
[2023-11-25] MEDS: DILAUDID 0.25 MG IV (19:22)
[2023-11-25 21:02] LABS: Glucose - Point of Care 142 mg/dl (70-99)
[2023-11-25] MEDS: TYLENOL 1000 MG PO (21:14)
[2023-11-25] MEDS: SENOKOT-S 1 TABLET PO (21:14)
[2023-11-25] MEDS: NEURONTIN 100 MG PO (21:14)
--- NOTE | 2023-11-25 21:32 | PTCARENOTE ---
PO Amiodarone held tonight as per [facility] orders; staff technologist alarming for ST elevation - [facility] notified and aware; iCal repleted x1; PRN IV Dilaudid given accordingly for pain; Dobutamine infusion changes as per [facility] orders -
see nursing flowsheets for further information
[2023-11-25 23:13] LABS: Glucose - Point of Care 139 mg/dl (70-99)
--- NOTE | 2023-11-25 23:30 | PTCARENOTE ---
assumed care of pt from previous RN. pt A&Ox4. SR on tele-monitor. POX 91-93% on 3 L NC. CTx4 (mediastinal x2, R & L pleural) to -20cm wall suction, draining sanguineous drainage. no air leaks noted. abd s/n, round, obese. hypoactive BS. pt c/o gas
pain. see MAR. no c/o nausea. tolerating sips of water. barrios catheter draining clear, yellow urine. all surgical sites stable, CDI. R IJ cordis w/ SLIC. R radial a-line. all lines leveled, zeroed, flushed. PIV x2 intact. see worklist for complete
nursing assessment, interventions, VS, and I&Os.
[2023-11-26] VITALS (28 sets, daily range): BP systolic 100–151; BP diastolic 60–96; PULSE 89; O2SAT 94–98; BMI 41.1
[2023-11-26 00:15] LABS: Glucose - Point of Care 147 mg/dl (70-99)
[2023-11-26] MEDS: REGLAN 10 MG IV (00:17)
[2023-11-26 01:10] LABS: Glucose - Point of Care 135 mg/dl (70-99)
[2023-11-26 02:23] LABS: Glucose - Point of Care 129 mg/dl (70-99)
[2023-11-26 02:28] LABS: Hematocrit 34.7 % (39.0-52.0); Hemoglobin 12.5 g/dL (13.0-18.0); Mean Corpuscular Hgb 31.3 pg (27.0-31.0); Mean Platelet Volume 8.7 fL (7.4-10.4); Platelet Count 231 10^3/uL (130-400); Red Blood Cell Count 3.99 10^6/uL (4.70-6.10); Red Cell Dist. Width 12.6 % (11.5-14.5); White Blood Cell Count 13.5 10^3/uL (4.8-10.8)
[2023-11-26 02:55] LABS: Blood Urea Nitrogen 17 mg/dl (9-20); Calcium 8.4 mg/dl (8.4-10.2); Carbon Dioxide 21 mmol/L (22-30); Chloride 105 mmol/L (98-107); Estimated Creatinine Clearance > 125 ml/min; Glucose 125 mg/dl (70-99); Potassium 4.1 mmol/L (3.5-5.1); Sodium 138 mmol/L (135-145); eGFR > 60.00
[2023-11-26 03:17] LABS: Glucose - Point of Care 113 mg/dl (70-99)
--- NOTE | 2023-11-26 03:25 | W.PN.CT ---
Today's Communication / Plan
-
-pod #1
-no issues overnight, no bradycardia or pauses
-Drips: Insulin. Cardene for radial graft - stop after initiation of po Norvasc. Dobutamine for inraop saadia - weaned off
-CT output: 2 meds 85/145, b/l pleur 40/85 in 12/24 hrs
-deline
-d/c Alfaro
-continue insulin drip
-continue meds (ASA, Plavix, Lopressor, Norvasc for radial graft, Amio, Lipitor, Protonix)
-encourage IS, OOB
Assessment / Plan
-
Assessment:
-Severe 3vCAD- s/p CABG x 4 (LOPEZ to LAD, RA to OM1, GSV to OM2, GSV to PDA); ELAA w/ 40mm AtriClip on 11/25/[address] Saleem, pod #1
-Post-RICHIE: normal biventricular function w/ no sig VHD
-T2DM (A1C 6.6)
-HTN/Hyperlipidemia
-Class 3 obesity (BMI 42.3)
-Current tobacco use (1/2 ppd)
-Anxiety/Depression
-S/P Cervical spine fusion (C3-5)
-S/P Nasal septal fx reduction
-Acute postop blood loss anemia - stable without transfusion
-Acute postop atelectasis
-Acute postop hypovolemia with subsequent hypervolemia
-Suspected acute postop pericarditis
Discussed patient care with: Nursing and Care Team
Subjective
Procedure
-s/p CABG x 4 (LOPEZ to LAD, RA to OM1, GSV to OM2, GSV to PDA); ELAA w/ 40mm AtriClip on 11/25/[address] Saleem
-
Date of Service: November 26, 2023
Objective Data
-
Lab Results
11/26/23 02:15
PT 16.8 Sec (11.4-14.6) H 11/25/23 14:38
INR 1.36 11/25/23 14:38
APTT 32.1 Sec (23.4-35.0) 11/25/23 14:38
Vital Signs
Vital Signs
Temp Pulse Resp BP Pulse Ox
98.7 F 89 15 110/68 97
11/26/23 02:00 11/26/23 02:00 11/26/23 02:00 11/26/23 02:00 11/26/23 02:00
CT Intake/Output/Weight
11/25/23 11/25/23 11/26/23
06:59 18:59 06:59
Intake Total 236.0 / 631.1 395.1 / 631.1
Output Total 500 / 1100 600 / 1100
Balance -264.0 / -468.9 -204.9 / -468.9
SaO2: 97
Physical Exam
-
General: Awake and AOx3
Cardiovascular: Regular rate & rhythm, No Murmurs and Rub
Respiratory: Decreased Breath Sounds
Sternum: Stable
Incision: Clean, Dry and Intact
Extremities: Other (trace edema b/l, 2+ DPs b/l. L radial with wilfrido wrap, dressing dry, clean)
Abdomen: soft, nontender, nondistended, +decreased bowel sounds
Data Reviewed
-
Lab Results: Results Reviewed
Medications: Active Meds Reviewed
Chest X-Ray: Report Reviewed and Image Reviewed
ECG: Report Reviewed and Image Reviewed
--- NOTE | 2023-11-26 03:30 | PTCARENOTE ---
assessment remains unchanged. VSS. POX 93-95% on 2 L NC. SR on tele-monitor. CT drainage WNL.
[2023-11-26] MEDS: ANCEF 5 IV ×2 (04:16→11:19)
[2023-11-26] MEDS: TYLENOL 1000 MG PO ×3 (05:04→21:50)
[2023-11-26] MEDS: FLEXERIL 5 MG PO ×2 (05:04→20:05)
[2023-11-26 05:11] LABS: Glucose - Point of Care 103 mg/dl (70-99)
[2023-11-26] MEDS: ROXICODONE 5 MG PO ×5 (05:14→22:15)
[2023-11-26] MEDS: NORVASC 2.5 MG PO ×2 (06:07→08:34)
--- NOTE | 2023-11-26 07:35 | W.PN.INTV ---
Today's Communication / Plan
Recommendations
Tolerated extubation
Insulin drip continues
Dobutamine wean
Cardene-conversion to Norvasc
Remains in ICU because of insulin drip
Assessment
-
58-year-old male with a history of hyperlipidemia, diabetes, depression, obesity, tobacco addiction who was noted to have significant CAD and underwent CABG-application defense manager consulted for postoperative ventilator/critical care management 11/25/2023.
Significant CAD with preoperative preserved EF
Status post CABG x 4-Stacey-LAD, RA to OM1, GSV-OM2, GSV-PDA, left atrial clip-Dr. Saleem 11/25/2023
Hyperglycemia
Conditions present prior to admission:
Hyperlipidemia.
Diabetes.
Cigarette smoker.
Anxiety/depression.
Obesity-BMI 42.
Herniated cervical disc.
C3-5 fusion. Colon polypectomy 2020. Nasal septal fracture open reduction.
Plan
Tolerated extubation
Wean FiO2
Encourage incentive spirometry
Increase activity
Aspiration precautions
Wean pressors and inotropes as needed
Cardene for radial graft-will be stopped and oral Norvasc initiated
Continue to monitor chest tube output
Follow hemoglobin
Continue to follow platelet count and coags
Transfuse blood product as needed
CT surgery following chest tubes as well
Follow blood sugar
Insulin drip continues-hopefully convert in the next 24 hours follow-up
Early nutrition
Early mobilization
DVT prophylaxis
Significant risk for underlying sleep disordered breathing/obstructive sleep apnea-recommend outpatient pulmonary/sleep disorders [id number], sleep study, yearly low-dose lung cancer screening CT, smoking cessation counseling, etc. all
Critical care statement: A total of 36 minutes of critical care time was provided for this patient today. This includes management of unstable vital signs, evaluation of the patient at bedside, reviewing the patient's pertinent medical records
including radiographs, insulin drip management, microbiology, laboratory evaluations, and discussion with primary team, follow-up charge nurse, critical care nursing, and respiratory therapy.
Diagnostic data:
Chest x-ray 11/23/2023-lungs clear
CT [id number] 07/23/2023-no pulmonary mass, severe coronary artery calcifications
CT chest 11/19/2023-large volume coronary artery calcifications, small anterior pericardial effusion, thoracic aorta within limits of normal
Echocardiogram 11/19/2023-EF 55-60%, normal diastolic function, PA systolic 15-20
Transesophageal echocardiogram 11/25/2023-EF 50-55%, stage I diastolic dysfunction, moderate left atrial enlargement, no thrombus or mass seen, mild tricuspid regurgitation
PET-myocardial scan 11/10/2023-perfusion imaging reveals a medium in size moderate severity partially reversible mid to distal anterior perfusion defect and a medium in size moderate in severity predominantly reversible inferior apical perfusion
defect, EF 56%, high risk due to multiple areas of ischemia
Subjective Dataa
Subjective Data
Date of Service:
Date of Service: November 26, 2023
Chief Complaint: Counsel Follow Up, Pulmonary Follow Up and Vent Management Follow Up
Subjective:
Tolerated extubation, no complaints of worsening shortness of breath, chest pain, abdominal pain
Review of Systems
General: Other ( Per HPI)
Objective Data
Data Reviewed
Vital Signs / I&O / Oxygen:
Vital Signs
Temp Pulse Resp BP Pulse Ox
98.9 F 92 18 110/67 97
11/26/23 05:00 11/26/23 07:00 11/26/23 06:08 11/26/23 07:00 11/26/23 07:00
Intake and Output
11/25/23 11/26/23 11/27/23
06:59 06:59 06:59
Intake Total 1023.6 / 1023.6 736.7 / 751.2 14.5 / 14.5
Output Total 1305 / 1390 85 / 85
Balance 1023.6 / 1023.6 -568.3 / -638.8 -70.5 / -70.5
SaO2 [CPAP] 95
SaO2 [SIMV] 94
SaO2 97
Nasal Cannula flow liters per 2
minute
Physical Exam
General: Respiratory Distress (n) and Comfortable
HEENT: Normocephalic, Anicteric and Moist Mucous Membranes
Cardiovascular: Regular Rhythm and JVD (n)
Respiratory: Clear ( diminished breath sounds), Wheeze (n), Crackles (n), Rhonchi (n), Non-Labored Respirations, Accessory Resp Muscle Use (n) and Stridor (n)
GI: Soft, Non Distended and Non Tender
Neurology: Awake, Alert and No Motor Deficits
Skin: Warm, Good Color, Cyanosis (n), Jaundice (n) and Rash (n)
Labs/Micro/Reports
Lab Data
11/26/23 02:15
11/26/23 02:15
Laboratory Results
11/25/23 11/25/23
14:38 17:11
PT 16.8 H
INR 1.36
APTT 32.1
pH 7.35 7.39
pCO2 47 41
pO2 98 70 L
HCO3 25.9 24.8
O2 Delivery Level
--- NOTE | 2023-11-26 08:05 | W.PN.ANS.POP ---
Anesthesia Post Operative
- Anesthesia Post Op Note
Vital Signs Stable-See Nursing Note: Yes
Airway Patent: Yes
Adequate Pain Control: Yes
Change in Mental Status: No
Current Postoperative Nausea & Vomiting: No
Anesthesia Complications: No
General Anesthetic Recall: No
Unplanned Admission: No
Post Op Hydration Adequate: Yes
[2023-11-26] MEDS: LIDOCAINE 4% PATCH 1 PATCH TOPICAL (08:33)
[2023-11-26] MEDS: LOW STRENGTH ASPIRIN 81 MG PO (08:34)
[2023-11-26] MEDS: MAGNESIUM OXIDE 500 MG PO ×2 (08:34→20:05)
[2023-11-26] MEDS: NEURONTIN 100 MG PO ×3 (08:34→21:50)
[2023-11-26] MEDS: SENOKOT-S 1 TABLET PO ×2 (08:34→20:05)
[2023-11-26] MEDS: LOPRESSOR 12.5 MG PO ×3 (08:34→21:50)
[2023-11-26] MEDS: PACERONE 200 MG PO ×3 (08:34→21:50)
[2023-11-26] MEDS: PROTONIX 40 MG PO (08:34)
[2023-11-26] MEDS: PLAVIX 75 MG PO (08:34)
[2023-11-26] MEDS: BACTROBAN 2% OINTMENT 1 APPLIC NASAL ×2 (08:35→20:05)
[2023-11-26] MEDS: NOVOLOG FLEXPEN 4 UNITS SC ×2 (08:36→12:44)
--- NOTE | 2023-11-26 09:08 | W.PN.CARDCBS ---
Addendum entered and electronically signed by Jamel Montoya MD 11/26/23 18:16:
Patient with postoperative discomfort, only drip at present is insulin
PMH: CAD, diabetes, obesity, hyperlipidemia, anxiety
Allergies: None
Current medications reviewed
ROS: Negative except as above
105/68, pulse 95, head neck exam unremarkable, cordis in place, lungs are clear, pericardial rub, JVD okay, abdomen benign, extremities without edema, chest incision, endoscopic vein harvest incision intact
White count 13.5, hemoglobin 12.5, BUN and creatinine 17 and 0.5
Chest x-ray with limited inspiration chest tubes in place, atrial clip, Cordis
Telemetry:Tachycardic
ECG: Most consistent with pericarditis
Impression:
-Multivessel coronary artery disease
-CABG x 4 with WHITE to LAD, radial artery to OM1, saphenous vein graft to OM 2 and saphenous vein graft to RPDA, ELAA with 40 mm atriclip 11/25/23
-NSVT, 10 beat run November 20
-Type 2 diabetes
-Morbid obesity
-Mixed hyperlipidemia
-Anxiety
Plan:
Overall doing well postop day 1 status post CABG November [address] surgery
Could consider addition of colchicine if necessary for pericarditis
Original Note:
Today's Communication / Plan
-
continue post op care
consider addition of colchicine for post op pericarditis if pain remains poorly controlled
follow EKG
Impression / Plan
-
.
PCP: Nirmal Jimenez
Hydraulic Jack Operator:Dr. Berry
IMPRESSION:
-Multivessel coronary artery disease, following cath for abnormal stress testing s/p CABG x 4 with WHITE to LAD, radial artery to OM1, saphenous vein graft to OM 2 and saphenous vein graft to RPDA, ELAA with [address] Rikik Saleem on
11/25/23
-NSVT, 10 beat run November 20
-Type 2 diabetes
-Morbid obesity
-Mixed hyperlipidemia
-Anxiety disorder
Echo 11/19/2023: EF 55 to 60% with no significant valvular disease.
Left heart Cath (R radial) 11/19/2023:
LEFT MAIN: Normal
LEFT ANTERIOR DESCENDING: Proximal calcified 60-70% stenosis involving the origin of D1. 50% mid and 50-60% distal stenosis. The first diagonal branch is small.
CIRCUMFLEX (non-dominant): 70-80% proximal OM1 near its origin. 80% mid circumflex just before the origin of OM 2. OM 2 is large and bifurcates to a larger and smaller daughter branch.
RIGHT CORONARY ARTERY: Heavily calcified with a long area of diffuse atherosclerotic disease in the midportion of the vessel. The RCA becomes occluded/subtotally occluded beyond the second RV marginal branch and the distal vessel is noted to fill
via right to right and utop-xw-owpzt collaterals.
Plan:
-s/p CABG x 4 with WHITE to LAD, radial artery to OM1, saphenous vein graft to OM 2 and saphenous vein graft to RPDA, ELAA with [address] Rikki Saleem on 11/25/23
-off pressors
-reports significant pain with deep breathing, as well as rub on exam and EKG with evidence of pericarditis. consider for colchicine, defer to CT surgery
-hgb 12.5. continue asa, plavix
-in SR/ST on review of tele. continue amio/lopressor
-norvasc added for radial graft
-continue high intensity statin
-resume mariano/farxiga when/if ok from surgical standpoint
-continue postop care
-d/w nursing, CT surgery
Progress Note - Hydraulic Jack Operator
Subjective
Date of Service: November 26, 2023
reports significant pain with taking deep breaths
Objective
Labs:
11/26/23 02:15
11/26/23 02:15
Labs
Hgb 12.5 g/dL (13.0-18.0) L 11/26/23 02:15
Hct 34.7 % (39.0-52.0) L 11/26/23 02:15
Plt Count 231 10^3/uL (130-400) 11/26/23 02:15
PT 16.8 Sec (11.4-14.6) H 11/25/23 14:38
INR 1.36 11/25/23 14:38
APTT 32.1 Sec (23.4-35.0) 11/25/23 14:38
Sodium 138 mmol/L (135-145) 11/26/23 02:15
Potassium 4.1 mmol/L (3.5-5.1) 11/26/23 02:15
BUN 17 mg/dl (9-20) 11/26/23 02:15
Creatinine 0.5 mg/dL (0.7-1.3) L 11/26/23 02:15
Glucose 125 mg/dl (70-99) H 11/26/23 02:15
Vital Signs and I&O:
Vital Signs
Temp Pulse Resp BP Pulse Ox
98.2 F 90 16 111 95
11/26/23 08:00 11/26/23 08:30 11/26/23 08:00 11/26/23 08:00 11/26/23 08:30
Vital Signs
Temp Pulse Resp BP Pulse Ox
98.2 F 90 16 11168 95
11/26/23 08:00 11/26/23 08:30 11/26/23 08:00 11/26/23 08:00 11/26/23 08:30
Intake & Output
11/24/23 11/25/23 11/26/23 11/27/23
07:59 07:59 07:59 07:59
Intake Total 680 / 680 1023.6 / 1023.6 751.2 / 865.7 114.5 / 114.5
Output Total 1390 / 1420 30 / 30
Balance 680 / 680 1023.6 / 1023.6 -638.8 / -554.3 84.5 / 84.5
Physical Exam
Physical Exam
GEN: No distress, awake, alert, oriented x3. obese. sitting in chair. on supp O2
HEENT: supple, anicteric, mmm, eomi
LUNGS: decreased BS B/L, no wheezes
CV: Reg and tachy, S1/S2, no murmur, +rub
ABD: soft, BS+, NT/ND
EXT: No cyanosis, clubbing. Trace edema of B/L LE. RLE with mariano wrap in place
NEURO: Gross non-focal
SKIN: Warm, pink, dry. No rash. Sternotomy dressing c/d/i. CTs in place. Mariano wrap to LUE
--- NOTE | 2023-11-26 09:16 | PTCARENOTE ---
assumed care of pt from previous shift RN, sinus rhythm on tele, VSS, + peripheral pulses, generalized edema. Lungs diminished, pox 95% on 2L NC. +bs, tolerating PO intake, DTV. Surgical sites intact, CT x4 w red drainage. Right IJ cordis w KVO and
insulin infusing, PIV x2 flush easily. pt medicated for pain. plan of care reviewed and questions encouraged.
[2023-11-26 09:52] LABS: Glucose - Point of Care 143 mg/dl (70-99)
[2023-11-26 09:52] LABS: Glucose - Point of Care 131 mg/dl (70-99)
[2023-11-26 11:15] LABS: Glucose - Point of Care 136 mg/dl (70-99)
[2023-11-26] MEDS: NSS IV (11:19)
[2023-11-26] MEDS: NOVOLIN R INSULIN INFUSION 100 IV (11:31)
--- NOTE | 2023-11-26 11:32 | CM ---
Chart reviewed. Patient is independent of ADLS, lives with his mother in a 2 [address], 3-4 ADRIANO, 0 DME. Plan is for the patient to return home with CT Transitional RN. CM to follow
--- NOTE | 2023-11-26 12:42 | PTCARENOTE ---
VSS, sinus rhythm maintained on tele
[2023-11-26 12:43] LABS: Glucose - Point of Care 119 mg/dl (70-99)
[2023-11-26 14:17] LABS: Glucose - Point of Care 210 mg/dl (70-99)
[2023-11-26 15:15] LABS: Glucose - Point of Care 197 mg/dl (70-99)
[2023-11-26 16:18] LABS: Glucose - Point of Care 183 mg/dl (70-99)
--- NOTE | 2023-11-26 16:38 | PTCARENOTE ---
CT dressing changed, VSS, sinus rhythm maintained.
[2023-11-26] MEDS: LIPITOR 80 MG PO (17:20)
[2023-11-26 17:27] LABS: Glucose - Point of Care 200 mg/dl (70-99)
[2023-11-26] MEDS: NOVOLOG FLEXPEN 8 UNITS SC (18:21)
[2023-11-26 18:24] LABS: Glucose - Point of Care 141 mg/dl (70-99)
[2023-11-26 19:33] LABS: Glucose - Point of Care 144 mg/dl (70-99)
--- NOTE | 2023-11-26 20:00 | PTCARENOTE ---
assumed care of pt from previous RN. pt A&Ox4, resting in chair at time of assessment. SR/ST w/ exertion on tele-monitor. pericardial friction rub on auscultation. POx 94-96% on RA. CTx4 (mediastinal x2, R & L pleural) to -20cm wall suction,
draining sanguineous drainage. no air leaks noted. abd s/n, round, obese. +BS. no c/o nausea. voiding clear, ariadna urine. all surgical sites stable. R IJ cordis unable to flush, CT PA aware. PIVx2 intact. see worklist for complete nursing
assessment, interventions, VS, and I&Os.
[2023-11-26 20:27] LABS: Glucose - Point of Care 126 mg/dl (70-99)
[2023-11-26 22:04] LABS: Glucose - Point of Care 100 mg/dl (70-99)
[2023-11-27] VITALS (19 sets, daily range): BP systolic 92–131; BP diastolic 46–74; PULSE 94; O2SAT 95; BMI 41.8
--- NOTE | 2023-11-27 | PTCARENOTE ---
assessment remains unchanged. VSS. pt placed on 2 L NC. POX 94-98%. CT drainage WNL.
[2023-11-27 00:03] LABS: Glucose - Point of Care 116 mg/dl (70-99)
[2023-11-27] MEDS: NOVOLIN R INSULIN INFUSION 100 IV (01:56)
[2023-11-27 01:59] LABS: Glucose - Point of Care 85 mg/dl (70-99)
[2023-11-27 03:56] LABS: Glucose - Point of Care 100 mg/dl (70-99)
--- NOTE | 2023-11-27 04:00 | PTCARENOTE ---
assessment remains unchanged. VSS. CT drainage WNL. AM labs collected and sent.
[2023-11-27 04:35] LABS: Hemoglobin 10.8 g/dL (13.0-18.0); Mean Corpuscular Hgb 31.6 pg (27.0-31.0); Mean Corpuscular Volume 87.7 fL (80.0-94.0); Mean Platelet Volume 8.8 fL (7.4-10.4); Platelet Count 243 10^3/uL (130-400); Red Blood Cell Count 3.42 10^6/uL (4.70-6.10); Red Cell Dist. Width 13.1 % (11.5-14.5); White Blood Cell Count 13.6 10^3/uL (4.8-10.8)
--- NOTE | 2023-11-27 04:35 | W.PN.CT ---
Addendum entered and electronically signed by Rikki Saleem MD 11/27/23 08:33:
I saw and examined the patient.
The PA's note was reviewed and I agree with the note.
Comment:
Postop day #2 status post CABG x 4/ELAA
No major overnight events, doing well
Maintain chest tubes today, out of bed, ambulate, I-S, will plan to DC chest tubes either later today if low output post ambulation or tomorrow
Aspirin/Plavix/beta-isaias (uptitrate), Amio, Norvasc
Out of bed I-S ambulate
Original Note:
Today's Communication / Plan
-
-pod #2
-no issues overnight
-gave extra 12.5 mg of Lopressor last night (total 25 mg), increased to 25 mg bid for PACs, PVCs
-Cordis dcd (nonfunctional)
-drips: insulin
-CT output: 2 meds 110/275, b/l pleur 85/195 in 12/24 hrs
-current meds (ASA, Plavix, Lipitor, Lopressor, Amio, Norvasc for radial graft, Protonix)
-encourage IS, OOB, ambualte
Assessment / Plan
-
Assessment:
-Severe 3vCAD- s/p CABG x 4 (LOPEZ to LAD, RA to OM1, GSV to OM2, GSV to PDA); ELAA w/ 40mm AtriClip on 11/25/[address] Saleem, pod #2
-Post-RICHIE: normal biventricular function w/ no sig VHD
-T2DM (A1C 6.6)
-HTN/Hyperlipidemia
-Class 3 obesity (BMI 42.3)
-Current tobacco use (1/2 ppd)
-Anxiety/Depression
-S/P Cervical spine fusion (C3-5)
-S/P Nasal septal fx reduction
-Acute postop blood loss anemia - stable without transfusion
-Acute postop atelectasis
-Acute postop hypovolemia with subsequent hypervolemia
-Suspected acute postop pericarditis
Discussed patient care with: Nursing and Care Team
Subjective
Procedure
-s/p CABG x 4 (LOPEZ to LAD, RA to OM1, GSV to OM2, GSV to PDA); ELAA w/ 40mm AtriClip on 11/25/[address] Saleem
-
Date of Service: November 27, 2023
Objective Data
-
PT 16.8 Sec (11.4-14.6) H 11/25/23 14:38
INR 1.36 11/25/23 14:38
APTT 32.1 Sec (23.4-35.0) 11/25/23 14:38
Vital Signs
Vital Signs
Temp Pulse Resp BP Pulse Ox
99.4 F 80 16 108/63 97
11/27/23 00:00 11/27/23 03:00 11/27/23 02:00 11/27/23 03:00 11/27/23 03:00
CT Intake/Output/Weight
11/26/23 11/26/23 11/27/23
06:59 18:59 06:59
Intake Total 500.7 / 751.2 259.5 / 349.3 89.8 / 349.3
Output Total 805 / 1390 525 / 750 225 / 750
Balance -304.3 / -638.8 -265.5 / -400.7 -135.2 / -400.7
SaO2: 97
Physical Exam
-
General: Awake and AOx3
Cardiovascular: Regular rate & rhythm, No Murmurs and No Rub
Respiratory: Decreased Breath Sounds
Sternum: Stable
Incision: Clean, Dry and Dressing Intact
Extremities: Edema +1 (1+ DPs b/l)
Abdomen: soft, nontender, nondistended, + bowel sounds, no nausea
Data Reviewed
-
Lab Results: Results Reviewed
Medications: Active Meds Reviewed
Chest X-Ray: Report Reviewed and Image Reviewed
ECG: Report Reviewed and Image Reviewed
[2023-11-27] MEDS: TYLENOL 1000 MG PO ×3 (04:55→19:50)
[2023-11-27] MEDS: ROXICODONE 5 MG PO ×3 (04:55→18:23)
[2023-11-27 05:02] LABS: Blood Urea Nitrogen 19 mg/dl (9-20); Calcium 8.2 mg/dl (8.4-10.2); Carbon Dioxide 22 mmol/L (22-30); Chloride 101 mmol/L (98-107); Estimated Creatinine Clearance > 125 ml/min; Glucose 100 mg/dl (70-99); Magnesium 2.2 mg/dl (1.6-2.3); Potassium 4.1 mmol/L (3.5-5.1); Sodium 134 mmol/L (135-145); eGFR > 60.00
[2023-11-27 06:13] LABS: Glucose - Point of Care 130 mg/dl (70-99)
--- NOTE | 2023-11-27 07:37 | W.PN.INTV ---
Today's Communication / Plan
Recommendations
Wean oxygen
Increase activity
Monitor chest tube output-possibly removal
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
Assessment
-
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
Significant CAD with preoperative preserved EF
Status post CABG x 4-Stacey-LAD, RA to OM1, GSV-OM2, GSV-PDA, left atrial clip-Dr. Saleem 11/25/2023
Hyperglycemia
Conditions present prior to admission:
Hyperlipidemia.
Diabetes.
Cigarette smoker.
Anxiety/depression.
Obesity-BMI 42.
Herniated cervical disc.
C3-5 fusion. Colon polypectomy 2020. Nasal septal fracture open reduction.
Plan
Respiratory status and hemodynamics are stable
Wean FiO2 to room air if possible
Incentive spirometry encouraged
Increase activity
Aspiration precautions
Cardene weaned and on Norvasc
Monitor chest tube output-possible out today
Follow hemoglobin
Continue to follow platelet count and coags
Transfuse blood product as needed
CT surgery following chest tubes as well
Follow blood sugar
Convert insulin drip
Nutrition
Out of bed and increase mobility
DVT prophylaxis
Significant risk for underlying sleep disordered breathing/obstructive sleep apnea-recommend outpatient pulmonary/sleep disorders [id number], sleep study, yearly low-dose lung cancer screening CT, smoking cessation counseling, etc. all
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
Reviewed the patient's pertinent medical records including radiographs, insulin drip management, microbiology, laboratory evaluations, and discussion with primary team, follow-up charge nurse, critical care nursing, and respiratory therapy.
Diagnostic data:
Chest x-ray 11/23/2023-lungs clear
CT [id number] 07/23/2023-no pulmonary mass, severe coronary artery calcifications
CT chest 11/19/2023-large volume coronary artery calcifications, small anterior pericardial effusion, thoracic aorta within limits of normal
Echocardiogram 11/19/2023-EF 55-60%, normal diastolic function, PA systolic 15-20
Transesophageal echocardiogram 11/25/2023-EF 50-55%, stage I diastolic dysfunction, moderate left atrial enlargement, no thrombus or mass seen, mild tricuspid regurgitation
PET-myocardial scan 11/10/2023-perfusion imaging reveals a medium in size moderate severity partially reversible mid to distal anterior perfusion defect and a medium in size moderate in severity predominantly reversible inferior apical perfusion
defect, EF 56%, high risk due to multiple areas of ischemia
Subjective Dataa
Subjective Data
Date of Service:
Date of Service: November 27, 2023
Chief Complaint: Pl Sql Developer Follow Up, Pulmonary Follow Up and Vent Management Follow Up
Subjective:
Feels 'wonky', no complaints of worsening shortness of breath, pain controlled, no chest congestion, productive cough, chest tubes with minimal drainage, no increased lower extremity swelling
Review of Systems
General: Other (Per HPI)
Objective Data
Data Reviewed
Vital Signs / I&O / Oxygen:
Vital Signs
Temp Pulse Resp BP Pulse Ox
99.4 F 107 16 113/61 92
11/27/23 00:00 11/27/23 06:10 11/27/23 02:00 11/27/23 06:10 11/27/23 06:00
Intake and Output
11/26/23 11/27/23 11/28/23
06:59 06:59 06:59
Intake Total 736.7 / 751.2 360.6 / 360.6
Output Total 1305 / 1390 1245 / 1245
Balance -568.3 / -638.8 -884.4 / -884.4
SaO2 [CPAP] 95
SaO2 [SIMV] 94
SaO2 92
Nasal Cannula flow liters per 2
minute
Physical Exam
General: Respiratory Distress (n) and Comfortable
HEENT: Normocephalic, Anicteric and Moist Mucous Membranes
Cardiovascular: Regular Rhythm and JVD (n)
Respiratory: Clear ( diminished breath sounds), Wheeze (n), Crackles (n), Rhonchi (n), Non-Labored Respirations, Accessory Resp Muscle Use (n) and Stridor (n)
GI: Soft, Non Distended and Non Tender
Neurology: Awake, Alert and No Motor Deficits
Skin: Warm, Good Color, Cyanosis (n), Jaundice (n) and Rash (n)
Labs/Micro/Reports
Lab Data
11/27/23 04:25
11/27/23 04:25
[2023-11-27 08:00] LABS: Glucose - Point of Care 92 mg/dl (70-99)
[2023-11-27] MEDS: NOVOLOG FLEXPEN 8 UNITS SC (08:38)
--- NOTE | 2023-11-27 09:00 | PTCARENOTE ---
Patient received from second shift supervisor resting oob in chair, AAO X 3, states pain controlled at this time. NSR via cm, SaO2 @ 99% on 2lnc, transitioned to RA. Chest tubes x 4 (mediastinal x 2/R and L pleural), to two seperate pleurevacs to -20cm suction,
no air leaks noted. All procedural sites stable. Insulin infusing, titrating per glycemic protocol. Patient updated to plan of care for the day, in agreement. See work list for full assessment and interventions performed.
[2023-11-27] MEDS: LASIX 40 MG IV (09:20)
[2023-11-27] MEDS: BACTROBAN 2% OINTMENT 1 APPLIC NASAL ×2 (09:20→19:52)
[2023-11-27] MEDS: MAGNESIUM OXIDE 500 MG PO ×2 (09:21→19:51)
[2023-11-27] MEDS: AMARYL 1 MG PO (09:21)
[2023-11-27] MEDS: LOPRESSOR 12.5 MG PO (09:21)
[2023-11-27] MEDS: FARXIGA 5 MG PO (09:21)
[2023-11-27] MEDS: PROTONIX 40 MG PO (09:21)
[2023-11-27] MEDS: GLUCOPHAGE 1000 MG PO ×2 (09:21→19:50)
[2023-11-27] MEDS: NEURONTIN 100 MG PO ×3 (09:21→19:51)
[2023-11-27] MEDS: PACERONE 200 MG PO ×3 (09:22→19:51)
[2023-11-27] MEDS: SENOKOT-S 1 TABLET PO ×2 (09:22→19:50)
[2023-11-27] MEDS: LOW STRENGTH ASPIRIN 81 MG PO (09:22)
[2023-11-27] MEDS: PLAVIX 75 MG PO (09:22)
[2023-11-27] MEDS: NORVASC 2.5 MG PO (09:22)
[2023-11-27] MEDS: LIDOCAINE 4% PATCH TOPICAL (09:34)
[2023-11-27 10:03] LABS: Glucose - Point of Care 192 mg/dl (70-99)
[2023-11-27 11:08] LABS: Glucose - Point of Care 187 mg/dl (70-99)
[2023-11-27] MEDS: NSS IV (11:34)
--- NOTE | 2023-11-27 11:50 | CM ---
Chart reviewed. Patient is independent of ADLS, lives with his mother in a 2 STH, bedroom and powder room on first floor, shower on second, 3-4 ADRIANO, 0 DME. Plan is for the patient to return home. CM to follow
--- NOTE | 2023-11-27 11:55 | W.PN.CARDCBS ---
Addendum entered and electronically signed by Lissy Elizabeth DO 11/27/23 18:26:
I saw and examined the patient.
The Coarse Wire Drawer's note was reviewed and I agree with the note.
Comment: Patient seen and examined sitting out of bed to chair. Continues with some pain with breathing, however improved compared to yesterday
General: Out of bed to chair
Neck: Right IJ cordis
Heart: Regular, positive S1-S2. No murmurs. Positive rub. Positive chest tubes. Positive pacing wires
Lungs: Bronchovesicular breath sounds decreased at the bases left greater than right
Abd: Positive BS, NT/ND, neg rebound/rigidity/guarding
Ext: ++ Edema
Neuro: nonfocal
Plan:
-s/p CABG x 4 with WHITE to LAD, radial artery to OM1, saphenous vein graft to OM 2 and saphenous vein graft to RPDA, ELAA with [address] Rikki Saleem on 11/25/23
-progressing
-review of tele overnight with several brief paroxysms of afib/atach. continue to follow on tele. continue amio/toprol 25mg BID
-reports breathing still painful at times however better than yesterday. rub less prominent today.
-Continue IV Lasix
-hgb 10.8. continue asa, plavix
-continue norvasc for radial graft
-continue high intensity statin
-farxiga resumed
-continue postop care, OOB/IS
-d/w nursing. d/w patient and mother at bedside
Original Note:
Today's Communication / Plan
-
continue post op care
follow on tele
continue amio/toprol/norvasc/asa/plavix/statin/farxiga
Impression / Plan
-
.
PCP: Nirmal Jimenez
Button Clamper:Dr. Berry
IMPRESSION:
-Multivessel coronary artery disease, following cath for abnormal stress testing s/p CABG x 4 with WHITE to LAD, radial artery to OM1, saphenous vein graft to OM 2 and saphenous vein graft to RPDA, ELAA with [address] Rikki Saleem on
11/25/23
-NSVT, 10 beat run November 20
-Type 2 diabetes
-Morbid obesity
-Mixed hyperlipidemia
-Anxiety disorder
Echo 11/19/2023: EF 55 to 60% with no significant valvular disease.
Left heart Cath (R radial) 11/19/2023:
LEFT MAIN: Normal
LEFT ANTERIOR DESCENDING: Proximal calcified 60-70% stenosis involving the origin of D1. 50% mid and 50-60% distal stenosis. The first diagonal branch is small.
CIRCUMFLEX (non-dominant): 70-80% proximal OM1 near its origin. 80% mid circumflex just before the origin of OM 2. OM 2 is large and bifurcates to a larger and smaller daughter branch.
RIGHT CORONARY ARTERY: Heavily calcified with a long area of diffuse atherosclerotic disease in the midportion of the vessel. The RCA becomes occluded/subtotally occluded beyond the second RV marginal branch and the distal vessel is noted to fill
via right to right and [id number] collaterals.
Plan:
-s/p CABG x 4 with WHITE to LAD, radial artery to OM1, saphenous vein graft to OM 2 and saphenous vein graft to RPDA, ELAA with [address] Rikki Saleem on 11/25/23
-progressing
-review of tele overnight with several brief paroxysms of afib/atach. continue to follow on tele. continue amio/toprol 25mg BID
-reports breathing still painful at times however better than yesterday. rub less prominent today.
-hgb 10.8. continue asa, plavix
-continue norvasc for radial graft
-continue high intensity statin
-farxiga resumed
-continue postop care, OOB/IS
-d/w nursing. d/w patient and mother at bedside
Progress Note - Button Clamper
Subjective
Date of Service: November 27, 2023
Continues with some pain with breathing, however improved compared to yesterday
Objective
Labs:
11/27/23 04:25
11/27/23 04:25
Labs
Hgb 10.8 g/dL (13.0-18.0) L 11/27/23 04:25
Hct 30.0 % (39.0-52.0) L 11/27/23 04:25
Plt Count 243 10^3/uL (130-400) 11/27/23 04:25
PT 16.8 Sec (11.4-14.6) H 11/25/23 14:38
INR 1.36 11/25/23 14:38
APTT 32.1 Sec (23.4-35.0) 11/25/23 14:38
Sodium 134 mmol/L (135-145) L 11/27/23 04:25
Potassium 4.1 mmol/L (3.5-5.1) 11/27/23 04:25
BUN 19 mg/dl (9-20) 11/27/23 04:25
Creatinine 0.7 mg/dL (0.7-1.3) 11/27/23 04:25
Glucose 100 mg/dl (70-99) H 11/27/23 04:25
Vital Signs and I&O:
Vital Signs
Temp Pulse Resp BP Pulse Ox
98.4 F 97 16 130/73 96
11/27/23 08:00 11/27/23 11:00 11/27/23 08:00 11/27/23 10:00 11/27/23 11:25
Vital Signs
Temp Pulse Resp BP Pulse Ox
98.4 F 97 16 130/73 96
11/27/23 08:00 11/27/23 11:00 11/27/23 08:00 11/27/23 10:00 11/27/23 11:25
Intake & Output
11/25/23 11/26/23 11/27/23 11/28/23
07:59 07:59 07:59 07:59
Intake Total 1023.6 / 1023.6 751.2 / 865.7 346.1 / 346.1 280 / 280
Output Total 1390 / 1420 1160 / 1180 50 / 50
Balance 1023.6 / 1023.6 -638.8 / -554.3 -813.9 / -833.9 230 / 230
Physical Exam
Physical Exam
GEN: No distress, awake, alert, oriented x3. obese. sitting in chair.
HEENT: supple, anicteric, mmm, eomi
LUNGS: decreased BS B/L, no wheezes
CV: Reg, S1/S2, no murmur, +rub
ABD: soft, BS+, NT/ND
EXT: No cyanosis, clubbing. Trace edema of B/L LE.
NEURO: Gross non-focal
SKIN: Warm, pink, dry. No rash. Sternotomy dressing c/d/i. CTs in place.
[2023-11-27 12:02] LABS: Glucose - Point of Care 152 mg/dl (70-99)
--- NOTE | 2023-11-27 12:10 | PTCARENOTE ---
VS obtained, assessment stable. Patient remains oob, ordering lunch. Mother at bedside.
[2023-11-27] MEDS: NOVOLOG FLEXPEN SC (12:20)
[2023-11-27 13:03] LABS: Glucose - Point of Care 114 mg/dl (70-99)
--- NOTE | 2023-11-27 16:13 | PTCARENOTE ---
VS obtained, assessment stable. Patient resting comfortably, states pain controlled at this time.
[2023-11-27] MEDS: NOVOLOG FLEXPEN-HIGH RESISTANCE 4 UNITS SC (17:38)
[2023-11-27] MEDS: LIPITOR 80 MG PO (17:38)
[2023-11-27 17:40] LABS: Glucose - Point of Care 211 mg/dl (70-99)
[2023-11-27 19:50] LABS: Glucose - Point of Care 234 mg/dl (70-99)
[2023-11-27] MEDS: TOPROL XL 25 MG PO (19:50)
--- NOTE | 2023-11-27 20:48 | PTCARENOTE ---
assumed care of patient @ 1900. received pt sitting in chair, AOx3. VSS on RA. NSR in 70s, +pulses trace LE edema. Lungs diminished throughought satting mid 90s on RA. Belly obese, good appetite. Voiding adequate amounts in bathroom. surgical
incisions CDI HIREN. PIV patent. pt assisted back to bed, resting comfortably with call burciaga within reach .
[2023-11-28] VITALS (10 sets, daily range): BP systolic 96–151; BP diastolic 60–98; PULSE 87; O2SAT 97–98; BMI 41.7
--- NOTE | 2023-11-28 00:26 | PTCARENOTE ---
assisted pt to bathroom and back to bed. No change in assessment. resting comfortably with call burciaga within reach
--- NOTE | 2023-11-28 03:00 | W.PN.CT ---
Addendum entered and electronically signed by Rikki Saleem MD 11/28/23 08:27:
I saw and examined the patient.
The PA's note was reviewed and I agree with the note.
Comment:
Postop day #3 status post coronary artery bypass grafting x 4/ELAA
Doing well. No overnight events
Continue aspirin/Plavix, Norvasc, beta-isaias, Lipitor, amiodarone
Diuresis today
Out of bed, I-S, ambulate
Discharge planning for hopefully tomorrow
Original Note:
Today's Communication / Plan
-
-pod #3
-no issues overnight
-no further hypotension, Norvasc was decreased
-weaned off O2 - pOx 96% on RA
-BMP pending
-consider diuresis (wt is 284 preop and 291 on 11/26)
-current meds (ASA, Plavix, Lipitor, Lopressor, Amio, Norvasc for radial graft, Protonix)
-encourage IS, OOB, ambualte
Assessment / Plan
-
Assessment:
-Severe 3vCAD- s/p CABG x 4 (LOPEZ to LAD, RA to OM1, GSV to OM2, GSV to PDA); ELAA w/ 40mm AtriClip on 11/25/[address] Saleem, pod #3
-Post-RICHIE: normal biventricular function w/ no sig VHD
-T2DM (A1C 6.6)
-HTN/Hyperlipidemia
-Class 3 obesity (BMI 42.3)
-Current tobacco use (1/2 ppd)
-Anxiety/Depression
-S/P Cervical spine fusion (C3-5)
-S/P Nasal septal fx reduction
-Acute postop blood loss anemia - stable without transfusion
-Acute postop atelectasis
-Acute postop hypovolemia with subsequent hypervolemia
-Suspected acute postop pericarditis
Discussed patient care with: Nursing and Care Team
Subjective
Procedure
-s/p CABG x 4 (LOPEZ to LAD, RA to OM1, GSV to OM2, GSV to PDA); ELAA w/ 40mm AtriClip on 11/25/[address] Saleem
-
Date of Service: November 28, 2023
Objective Data
-
PT 16.8 Sec (11.4-14.6) H 11/25/23 14:38
INR 1.36 11/25/23 14:38
APTT 32.1 Sec (23.4-35.0) 11/25/23 14:38
Vital Signs
Vital Signs
Temp Pulse Resp BP Pulse Ox
97.7 F 88 16 131/67 95
11/27/23 20:00 11/27/23 20:00 11/28/23 00:24 11/27/23 19:41 11/28/23 00:24
CT Intake/Output/Weight
11/27/23 11/27/23 11/28/23
06:59 18:59 06:59
Intake Total 101.1 / 360.6 540 / 1020 480 / 1020
Output Total 720 / 1245 90 / 90
Balance -618.9 / -884.4 450 / 930 480 / 930
SaO2: 95
Physical Exam
-
General: Awake and AOx3
Cardiovascular: Regular rate & rhythm, No Murmurs and No Rub
Respiratory: Decreased Breath Sounds
Sternum: Stable
Incision: Clean, Dry and Dressing Intact
Abdomen: soft, nontender, nondistended, + bowel sounds, no nausea
Extremities: Edema +1 (1+ DPs b/l)
Data Reviewed
-
Lab Results: Results Reviewed
Medications: Active Meds Reviewed
Chest X-Ray: Report Reviewed and Image Reviewed
ECG: Report Reviewed and Image Reviewed
[2023-11-28] MEDS: ROXICODONE 5 MG PO ×2 (03:31→15:53)
[2023-11-28 03:34] LABS: Hematocrit 31.9 % (39.0-52.0); Hemoglobin 11.2 g/dL (13.0-18.0); Mean Corp Hgb Conc. 35.1 g/dL (33.0-37.0); Mean Corpuscular Hgb 32.1 pg (27.0-31.0); Mean Corpuscular Volume 91.4 fL (80.0-94.0); Mean Platelet Volume 8.8 fL (7.4-10.4); Platelet Count 247 10^3/uL (130-400); Red Blood Cell Count 3.49 10^6/uL (4.70-6.10); White Blood Cell Count 14.1 10^3/uL (4.8-10.8)
--- NOTE | 2023-11-28 03:37 | PTCARENOTE ---
pt assisted to bathroom and back to bed. labs drawn. 5 of laura given for pain. resting in bed with call burciaga within reach .
[2023-11-28 04:06] LABS: Blood Urea Nitrogen 20 mg/dl (9-20); Calcium 7.9 mg/dl (8.4-10.2); Carbon Dioxide 23 mmol/L (22-30); Chloride 99 mmol/L (98-107); Estimated Creatinine Clearance > 125 ml/min; Glucose 168 mg/dl (70-99); Potassium 4.4 mmol/L (3.5-5.1); Sodium 132 mmol/L (135-145); eGFR > 60.00
--- NOTE | 2023-11-28 07:00 | PTCARENOTE ---
Pt received from outgoing RN, POD, aaox4, in bed resting, vss, ra, nsr, cordis, wires insulated, PIV, ambulate to br, cardiac rehab.
[2023-11-28 09:05] LABS: Glucose - Point of Care 167 mg/dl (70-99)
[2023-11-28] MEDS: FARXIGA 5 MG PO (09:09)
[2023-11-28] MEDS: SENOKOT-S 1 TABLET PO (09:09)
[2023-11-28] MEDS: MAGNESIUM OXIDE 500 MG PO ×2 (09:09→20:47)
[2023-11-28] MEDS: GLUCOPHAGE 1000 MG PO ×2 (09:09→20:46)
[2023-11-28] MEDS: TYLENOL 1000 MG PO ×2 (09:10→20:47)
[2023-11-28] MEDS: PLAVIX 75 MG PO (09:10)
[2023-11-28] MEDS: AMARYL 1 MG PO (09:10)
[2023-11-28] MEDS: NEURONTIN 100 MG PO ×3 (09:10→20:47)
[2023-11-28] MEDS: PACERONE 200 MG PO ×3 (09:10→20:46)
[2023-11-28] MEDS: NORVASC 2.5 MG PO (09:10)
[2023-11-28] MEDS: LOW STRENGTH ASPIRIN 81 MG PO (09:10)
[2023-11-28] MEDS: PROTONIX 40 MG PO (09:10)
[2023-11-28] MEDS: TOPROL XL 25 MG PO ×2 (09:10→20:47)
[2023-11-28] MEDS: LIDOCAINE 4% PATCH TOPICAL (09:11)
[2023-11-28] MEDS: BACTROBAN 2% OINTMENT 1 APPLIC NASAL ×2 (09:11→20:48)
[2023-11-28] MEDS: NOVOLOG FLEXPEN-HIGH RESISTANCE 2 UNITS SC ×2 (09:11→16:43)
[2023-11-28] MEDS: NSS IV (10:14)
--- NOTE | 2023-11-28 11:07 | PTCARENOTE ---
pt reassessment unchanged from previous, vss, ra, nsr, ambulated with cardiac rehab, +BM x1 today,
[2023-11-28 11:54] LABS: Glucose - Point of Care 219 mg/dl (70-99)
[2023-11-28] MEDS: NOVOLOG FLEXPEN-HIGH RESISTANCE 4 UNITS SC (12:24)
[2023-11-28] MEDS: TYLENOL PO (14:55)
--- NOTE | 2023-11-28 15:55 | PTCARENOTE ---
pt VSS, agree w/ previous family assessment worker. pt OOB in chair. ambulated in hallway w/ stand by assist. pt c/o sternal pain, received PRN Roxicodone 5mg PO. family at bedside.
[2023-11-28] MEDS: LIPITOR 80 MG PO (16:41)
[2023-11-28 16:44] LABS: Glucose - Point of Care 167 mg/dl (70-99)
[2023-11-28] MEDS: MYLICON 80 MG PO ×2 (18:23→20:46)
--- NOTE | 2023-11-28 20:20 | PTCARENOTE ---
assumed care of patient @ 1900. received pt laying in bed, AOx3. VSS on RA. NSR in the 80s-90s. +pp, trace LE edema. Lungs clear, diminished on room air. Obese, round belly, pt c/o gas pain. simethicone given earlier, assisted pt to walk around in
hallway to relieve pressure. Voiding clear yellow urine in toilet. Surgical sites CDI HIREN with glue. pt assisted to chair, resting comfortably with call burciaga within reach .
[2023-11-28 20:47] LABS: Glucose - Point of Care 180 mg/dl (70-99)
[2023-11-28] MEDS: SENOKOT-S PO (20:48)
[2023-11-29 00:29] VITALS: BP 131/76
--- NOTE | 2023-11-29 04:00 | PTCARENOTE ---
no change in assessment, resting comfortably with call burciaga within reach .
--- NOTE | 2023-11-29 04:00 | PTCARENOTE ---
pt with sinus tachycardia in the 110s-120s for ~ 1 minute while sleeping. CTPA notified. no other change in assessment
[2023-11-29 04:15] LABS: Hematocrit 31.4 % (39.0-52.0); Hemoglobin 11.3 g/dL (13.0-18.0); Mean Corpuscular Hgb 32.8 pg (27.0-31.0); Mean Platelet Volume 8.9 fL (7.4-10.4); Platelet Count 283 10^3/uL (130-400); Red Blood Cell Count 3.45 10^6/uL (4.70-6.10); Red Cell Dist. Width 12.7 % (11.5-14.5); White Blood Cell Count 12.5 10^3/uL (4.8-10.8)
[2023-11-29 04:45] LABS: Blood Urea Nitrogen 17 mg/dl (9-20); Calcium 8.4 mg/dl (8.4-10.2); Carbon Dioxide 26 mmol/L (22-30); Chloride 98 mmol/L (98-107); Estimated Creatinine Clearance > 125 ml/min; Glucose 137 mg/dl (70-99); Magnesium 2.2 mg/dl (1.6-2.3); Potassium 4.1 mmol/L (3.5-5.1); Sodium 133 mmol/L (135-145); eGFR > 60.00
[2023-11-29 05:07] VITALS: BP 130/69
--- NOTE | 2023-11-29 05:43 | W.PN.CT ---
Addendum entered and electronically signed by Rikki Saleem MD 11/29/23 09:56:
I saw and examined the patient.
The PA's note was reviewed and I agree with the note.
Comment:
Postop day #4 status post coronary bypass grafting x 4 and exclusion of left atrial appendage
Doing very well
Continue aspirin, Plavix, Lopressor, Norvasc, Amio, Lipitor
Out of bed, I-S, ambulate
DC home later today
Original Note:
Today's Communication / Plan
-
-pod #4
-no issues overnight
-no further hypotension, Norvasc was decreased
-remains on RA
-current meds (ASA, Plavix, Lipitor, Lopressor 25 mg, Amio, Norvasc for radial graft, Protonix)
-multimodal pain management (APAP, gabapentin, lido patch)
-encourage IS, OOB, ambualte
-DC planning
Assessment / Plan
-
Assessment:
-Severe 3vCAD- s/p CABG x 4 (LOPEZ to LAD, RA to OM1, GSV to OM2, GSV to PDA); ELAA w/ 40mm AtriClip on 11/25/[address] Saleem, pod #4
-Post-RICHIE: normal biventricular function w/ no sig VHD
-T2DM (A1C 6.6)
-HTN/Hyperlipidemia
-Class 3 obesity (BMI 42.3)
-Current tobacco use (1/2 ppd)
-Anxiety/Depression
-S/P Cervical spine fusion (C3-5)
-S/P Nasal septal fx reduction
-Acute postop blood loss anemia - stable without transfusion
-Acute postop atelectasis
-Acute postop hypovolemia with subsequent hypervolemia
-Suspected acute postop pericarditis
Subjective
Procedure
-s/p CABG x 4 (LOPEZ to LAD, RA to OM1, GSV to OM2, GSV to PDA); ELAA w/ 40mm AtriClip on 11/25/[address] Saleem
-
Date of Service: November 29, 2023
Objective Data
-
Lab Results
11/29/23 03:51
11/29/23 03:51
PT 16.8 Sec (11.4-14.6) H 11/25/23 14:38
INR 1.36 11/25/23 14:38
APTT 32.1 Sec (23.4-35.0) 11/25/23 14:38
Vital Signs
Vital Signs
Temp Pulse Resp BP Pulse Ox
98.1 F 85 16 130/69 94
11/29/23 05:07 11/29/23 05:07 11/29/23 05:07 11/29/23 05:07 11/29/23 05:07
CT Intake/Output/Weight
11/28/23 11/28/23 11/29/23
06:59 18:59 06:59
Intake Total 480 / 1020 960 / 960
Output Total 400 / 400
Balance 480 / 930 560 / 560
SaO2: 94
Physical Exam
-
General: Awake, Oriented and AOx3
Cardiovascular: Regular rate & rhythm and No Murmurs
Respiratory: Clear and Equal
Sternum: Stable
Incision: Clean, Dry and Intact
Extremities: No Edema
Data Reviewed
-
Lab Results: Results Reviewed
Medications: Active Meds Reviewed
Chest X-Ray: Report Reviewed
ECG: Report Reviewed
[2023-11-29 06:00] VITALS: BMI 41.6
--- NOTE | 2023-11-29 07:00 | PTCARENOTE ---
Bedside walking rounds report received. Patient seen on rounds resting in bed on room air: assisted oob to chair and to bathroom to void. Wants to go home today. Plan 2 view x ray and ambulate. NSR. Denies pain. See flowrecord for remaining
assessments.
[2023-11-29] MEDS: NOVOLOG FLEXPEN-HIGH RESISTANCE 2 UNITS SC ×2 (07:33→11:11)
[2023-11-29] MEDS: TYLENOL PO (07:33)
[2023-11-29 07:36] VITALS: BP 123/61
[2023-11-29 07:38] VITALS: BP 123/61
[2023-11-29 07:42] LABS: Glucose - Point of Care 164 mg/dl (70-99)
[2023-11-29] MEDS: FARXIGA 5 MG PO (07:48)
[2023-11-29] MEDS: MAGNESIUM OXIDE 500 MG PO (07:48)
[2023-11-29] MEDS: LOW STRENGTH ASPIRIN 81 MG PO (07:48)
[2023-11-29] MEDS: PACERONE 200 MG PO (07:48)
[2023-11-29] MEDS: AMARYL 1 MG PO (07:48)
[2023-11-29] MEDS: NEURONTIN 100 MG PO (07:48)
[2023-11-29] MEDS: PROTONIX 40 MG PO (07:48)
[2023-11-29] MEDS: NORVASC 2.5 MG PO (07:48)
[2023-11-29] MEDS: PLAVIX 75 MG PO (07:48)
[2023-11-29] MEDS: TOPROL XL 25 MG PO (07:49)
[2023-11-29] MEDS: LIDOCAINE 4% PATCH TOPICAL (07:49)
[2023-11-29] MEDS: BACTROBAN 2% OINTMENT 1 APPLIC NASAL (07:49)
[2023-11-29] MEDS: GLUCOPHAGE 1000 MG PO (07:49)
[2023-11-29] MEDS: SENOKOT-S PO (07:50)
[2023-11-29] MEDS: MYLICON 80 MG PO (09:52)
--- NOTE | 2023-11-29 10:40 | PTCARENOTE ---
Ambulated hallway/then did 12 steps up and down: instruction by RN and return demonstration by patient. See post activity vitals: moderately short of breath at end of activity: pulse ox was 99%.
[2023-11-29 10:44] VITALS: BP 120/70
[2023-11-29 10:45] VITALS: BP 120/70
--- NOTE | 2023-11-29 10:59 | W.DCSUMMARY ---
Discharge Summary
Discharge Data
Date of Admission: 11/19/23
Date of Discharge: 11/29/23
Total time spent discharging patient (in min): 30
-
Pending Results: No
Hospital Course
Patient was admitted on 11/19/2023 for elective cardiac cath for exertional chest tightness and incidental lung calcification findings on the CT scan. The cath showed significant multivessel coronary artery disease. Patient ultimately underwent
coronary artery bypass grafting by Dr. Rikki Saleem on 11/25/2023. Please refer to his separately dictated operative report for complete details. Patient was transferred to the ICU on dobutamine Levophed and Cardizem drips. He was extubated per
protocol on postop day 0 at 1730. Vasoactive medications were weaned off overnight with exception of dobutamine which remained on.
Postoperative day #1: Dobutamine was weaned off, the patient was hemodynamically stable, invasive monitoring lines were removed, insulin drip was continued due to his history of diabetes. Norvasc was started for radial artery spasm prophylaxis.
Postoperative day #2: Norvasc and beta-blockers were decreased due to soft blood pressures. The patient was given a single dose of intravenous Lasix. Insulin drip was transitioned off and home diabetic regimen was restarted. Chest tubes were
removed.
Postoperative day #3: Patient remained stable. Blood pressure remained stable after reducing antihypertensive medications. Patient is on room air. Patient continues to ambulate well. Anticipate discharge in the morning.
Postoperative day #4: No significant change. Patient remained stable on room air. Blood pressure remained stable on current medications. Plan for discharge home today. Discharge structures reviewed extensively with the patient and his family
prior to him leaving today. His questions were answered to his satisfaction. He was provided with instructions and details on how to communicate with our service should any needs arise.
Discharge Plan
-
Patient Disposition: Home (Routine Discharge)
Discharge Diagnosis/Procedures: -Severe triple-vessel coronary artery disease-status post coronary artery bypass grafting x 4 (left internal thoracic artery to left anterior descending, radial artery to obtuse marginal 1, saphenous vein graft to
obtuse marginal 2, saphenous vein graft to posterior descending artery); exclusion of left atrial appendage w/ 40mm AtriClip on 11/25/[address] Saleem
-Postop transesophageal echocardiogram: normal biventricular function
-Type 2 diabetes mellitus (A1C 6.6)
-Hypertension
-Hyperlipidemia
-Class 3 obesity (body mass index 42.3)
-Current tobacco use (1/2 pack per day)
-Anxiety/Depression
-Status post cervical spine fusion (C3-5)
-Status post nasal septal fracture reduction
-Acute postoperative blood loss anemia - stable without transfusion
-Acute postoperative atelectasis
-Acute postoperative hypovolemia with subsequent hypervolemia
-Suspected acute postoperative pericarditis
Diet: Low Cholesterol and Diabetic, Carb Controlled
Activity: No strenuous activity
Driving Restrictions: No driving for 24 hours
Bathing Restrictions: OK to Shower
Specialty Instructions: Weigh Daily- Call MD for wt gain/loss 3 lbs overnight/5 lbs in 1 week
Activity Restrictions/Additional Instructions:
ACTIVITY:
-No strenuous activity: no heavy lifting, pushing, pulling anything over 15 pounds for one month
-continue to use stairs as tolerated
DRIVING RESTRICTIONS:
-No driving for one month or until approved by your surgeon
WOUND CARE:
-Shower daily. Use soap & water.
-No lotions, creams or powders on incision area.
DIET:
-continue a low fat/low cholesterol diet.
-IF you are diabetic, continue carb controlled diet.
CARDIAC REHAB:
-Please make appointment to start in 5-6 weeks with your local hospital program. (See Cardiac Rehabilitation Discharge Booklet).
SPECIALTY INSTRUCTIONS:
-Weigh yourself daily. Call your physician for any weight gain/loss of 3 lbs overnight or 5 lbs in one week.
-REPORT any clicking noise or uneven appearance of your sternum to your surgeon immediately.
-If you smoke, you are instructed to quit. The [facility] smoking hotline phone number is [phone]
Stand Alone Forms: DC Instructions- Cath/EP Lab
Referrals:
CT Transitional Care Nurse [Outside] (The Cardiothoracic Transitional Care Nurse will call you to set up a visit in 1-2 days.)
[facility] [Outside] - 01/07/24 9:30 am
(Cardiac Rehab Orientation appointment is on 01/07/24 at 9:30 AM
The Cardiac Rehab gym is located on the first floor of [facility].)
Kimmie Hernandez PA-C [Specified Professional Personl] - 01/04/24 10:00 am
Jamel Berry MD [Active] - 02/15/24 4:00 pm
Nirmal Jimenez DO [Family Provider] - in one to two months
Preet Sanchez MD [Active] - in two to four weeks (RON workup-needs home polysomnogram)
Rikki Saleem MD [Active] - 12/29/23 1:30 pm
Prescriptions:
New
atorvastatin 80 mg Tablet
80 mg PO QPM Qty: 30 2RF
acetaminophen 325 mg Tablet
650 mg PO Q4HPRN PRN (Reason: mild pain,headache,temp >101F ) Qty: 60 0RF
amlodipine 2.5 mg Tablet
2.5 mg PO DAILY Qty: 30 2RF
clopidogrel 75 mg Tablet
75 mg PO DAILY 365 Days Qty: 30 2RF
metoprolol succinate 25 mg Tablet Extended Release 24 Hr
25 mg PO BID Qty: 60 2RF
oxycodone 5 mg Tablet
5 mg PO Q4HPRN PRN (Reason: moderate pain) Qty: 30 0RF
Continued
metformin 500 MG tablet
1,000 mg PO BID
aspirin [Ecotrin Low Strength] 81 MG tablet,delayed release (DR/EC)
81 mg PO DAILY
glimepiride 1 mg Tablet
1 mg PO DAILY
dapagliflozin propanediol [Farxiga] 5 mg Tablet
5 mg PO DAILY
Mounjaro 5 mg/0.5 mL Pen Injector
5 mg SC QWEEK
Discontinued
simvastatin 40 MG tablet
40 mg PO QPM
Discharge Orders:
Discharge Patient (As Directed); Ordered 11/29/23
Ordered By: Ariel Chang
Care Plan Goals
Care Plan Goals:
Problem: Readiness for enhanced knowledge related to diagnosis and treatment plan
Goal: Understand your diagnosis and treatment plan needs, including medications if applicable.
Instructions: Know your diagnosis, underlying causes and treatment plan options, including medications if applicable. Consult with your health care team to learn about your diagnosis and treatment plan, including medications if applicable.
Discharge Date and Time
Print Language: KITTITIAN
[2023-11-29 11:15] LABS: Glucose - Point of Care 163 mg/dl (70-99)
--- NOTE | 2023-11-29 12:00 | PTCARENOTE ---
No acute changes. Clear for discharge to home. Sternal aquacell removed: sternal incision intact and approximated. Chest tube dressing removed: old chest tube sites without drainage and sutures intact. Instructed and reinforced showering techniques
at home related to all incisions. Patient verbalized understanding. NSR. Room air.
== END 2023-11-29 13:30 | disposition home or self-care (01) | DRG 234 ==
LOC: CVICU 09:58
PROVIDERS: Anesthesiology; Clinical Nurse Specialist Acute Care; Nurse Practitioner; Nurse Practitioner Adult Health; Physician Assistant Medical; ADMITTING PHYSICIAN Internal Medicine Interventional Cardiology; ATTENDING PHYSICIAN Thoracic Surgery (Cardiothoracic Vascular Surgery); CONSULT PHYSICIAN Internal Medicine Critical Care Medicine; FAMILY PHYSICIAN Family Medicine
PROC: B2111ZZ Fluoroscopy of Multiple Coronary Arteries using Low Osmolar Contrast (ICD-10-PCS; 2023-11-19)
PROC: B2151ZZ Fluoroscopy of Left Heart using Low Osmolar Contrast (ICD-10-PCS; 2023-11-19)
PROC: 4A023N7 Measurement of Cardiac Sampling and Pressure, Left Heart, Percutaneous Approach (ICD-10-PCS; 2023-11-19)
PROC: 06BP4ZZ Excision of Right Saphenous Vein, Percutaneous Endoscopic Approach (ICD-10-PCS; 2023-11-25)
PROC: 02100AW Bypass Coronary Artery, One Artery from Aorta with Autologous Arterial Tissue, Open Approach (ICD-10-PCS; 2023-11-25)
PROC: 02L70CK Occlusion of Left Atrial Appendage with Extraluminal Device, Open Approach (ICD-10-PCS; 2023-11-25)
PROC: B24BZZ4 Ultrasonography of Heart with Aorta, Transesophageal (ICD-10-PCS; 2023-11-25)
PROC: 02100ZC Bypass Coronary Artery, One Artery from Thoracic Artery, Open Approach (ICD-10-PCS; 2023-11-25)
PROC: 5A1221Z Performance of Cardiac Output, Continuous (ICD-10-PCS; 2023-11-25)
PROC: 03BC4ZZ Excision of Left Radial Artery, Percutaneous Endoscopic Approach (ICD-10-PCS; 2023-11-25)
PROC: 021109W Bypass Coronary Artery, Two Arteries from Aorta with Autologous Venous Tissue, Open Approach (ICD-10-PCS; 2023-11-25)
DX: I25.118 Atherosclerotic heart disease of native coronary artery with other forms of angina pectoris (principal); D62 Acute posthemorrhagic anemia; J98.11 Atelectasis; I30.9 Acute pericarditis, unspecified; Z68.41 Body mass index [BMI] 40.0-44.9, adult; I47.20 Ventricular tachycardia, unspecified; E66.01 Morbid (severe) obesity due to excess calories; E11.65 Type 2 diabetes mellitus with hyperglycemia; I10 Essential (primary) hypertension; E86.1 Hypovolemia; E87.70 Fluid overload, unspecified; F17.210 Nicotine dependence, cigarettes, uncomplicated; E78.00 Pure hypercholesterolemia, unspecified; F41.9 Anxiety disorder, unspecified; F32.A Depression, unspecified; M50.20 Other cervical disc displacement, unspecified cervical region; Z79.82 Long term (current) use of aspirin; Z79.84 Long term (current) use of oral hypoglycemic drugs; Z79.899 Other long term (current) drug therapy; Z82.49 Family history of ischemic heart disease and other diseases of the circulatory system; Z98.1 Arthrodesis status
CPT/HCPCS: 71045; 71046; 71250; 80048; 80053; 80061; 81003; 82248; 82330; 82565; 82805; 82810; 82947; 82962; 83036; 83735; 84132; 84302; 84520; 85014; 85018; 85025; 85027; 85049; 85610; 85730; 86850; 86900; 86901; 86920; 93005; 93306; 93312; 93320; 93325; 93458; 93880; 94002; C1894; Q9967

== ENCOUNTER → 2023-12-11 07:42 | Outpatient (REF) | payer OTHER, SELFPAY ==
[2023-12-11 10:04] LABS: Blood Urea Nitrogen 12 mg/dl (9-20); Calcium 8.9 mg/dl (8.4-10.2); Carbon Dioxide 27 mmol/L (22-30); Chloride 98 mmol/L (98-107); Glucose 137 mg/dl (70-99); Potassium 4.6 mmol/L (3.5-5.1); Sodium 137 mmol/L (135-145); eGFR > 60.00
== END ==
LOC: HWLAB 07:42
PROVIDERS: ATTENDING PHYSICIAN Internal Medicine Interventional Cardiology; FAMILY PHYSICIAN Family Medicine
DX: R60.9 Edema, unspecified (principal)
CPT/HCPCS: 36415; 80048

== ENCOUNTER → 2024-01-01 07:36 | Outpatient (REF) | payer OTHER, SELFPAY ==
[2024-01-01 09:38] LABS: % Basophils 0.9 % (0-2); % Eosinophils 4.1 % (0-6); % Immature Granulocytes 0.2 % (0-0.5); % Lymphocytes 24.7 % (20.5-51.1); % Monocytes 7.9 % (1.7-9.3); % Neutrophils 62.2 % (42.2-75.2); Absolute Basophils 0.1 10^3/uL (0-0.2); Absolute Eosinophils 0.3 10^3/uL (0-0.7); Absolute Monocytes 0.6 10^3/uL (0.1-0.6); Hematocrit 41.4 % (39.0-52.0); Hemoglobin 13.8 g/dL (13.0-18.0); Mean Corp Hgb Conc. 33.3 g/dL (33.0-37.0); Mean Platelet Volume 8.9 fL (7.4-10.4); Nucleated Red Blood Cells % 0 % (-); Platelet Count 310 10^3/uL (130-400); Red Blood Cell Count 4.45 10^6/uL (4.70-6.10); Red Cell Dist. Width 13.7 % (11.5-14.5); White Blood Cell Count 8.1 10^3/uL (4.8-10.8)
[2024-01-01 09:46] LABS: ALT (SGPT) 20 U/L (0-50); AST (SGOT) 20 U/L (17-59); Albumin 3.6 g/dl (3.5-5.0); Alkaline Phosphatase 62 U/L (38-126); Blood Urea Nitrogen 14 mg/dl (9-20); Carbon Dioxide 26 mmol/L (22-30); Chloride 101 mmol/L (98-107); Glucose 127 mg/dl (70-99); HDL Cholesterol 34 mg/dl; LDL Cholesterol, Calculated 41 mg/dl; Potassium 4.5 mmol/L (3.5-5.1); Sodium 137 mmol/L (135-145); Total Bilirubin 0.5 mg/dl (0.2-1.3); Total Cholesterol 93 mg/dl (50-199); Total Protein 6.2 g/dl (6.3-8.2); Triglyceride 94 mg/dl (10-149); Very Low Density Lipoprotein 18 mg/dl (0-30); eGFR > 60.00
[2024-01-01 13:00] LABS: Glycohemoglobin (HgbA1c) 6.2 % (4.0-5.6)
== END ==
LOC: HWLAB 07:36
PROVIDERS: ATTENDING PHYSICIAN Family Medicine
DX: E11.9 Type 2 diabetes mellitus without complications (principal); Z00.01 Encounter for general adult medical examination with abnormal findings; E78.5 Hyperlipidemia, unspecified; E66.01 Morbid (severe) obesity due to excess calories; Z95.1 Presence of aortocoronary bypass graft
CPT/HCPCS: 36415; 80053; 80061; 83036; 85025

== ENCOUNTER 2024-01-07 15:14 | Outpatient (RCR) | payer OTHER, SELFPAY | END 2024-01-07 23:59 | disposition home or self-care (01) | LOC: CRHB 15:14 | PROVIDERS: ATTENDING PHYSICIAN Internal Medicine Interventional Cardiology | DX: I25.10 Atherosclerotic heart disease of native coronary artery without angina pectoris (principal); Z95.1 Presence of aortocoronary bypass graft | CPT/HCPCS: G0422; G0423 ==

== ENCOUNTER → 2024-02-02 12:00 | Outpatient (REF) | payer OTHER, SELFPAY | LOC: DHSLP 12:00 | PROVIDERS: ATTENDING PHYSICIAN Internal Medicine; FAMILY PHYSICIAN Family Medicine | DX: G47.33 Obstructive sleep apnea (adult) (pediatric) (principal) | CPT/HCPCS: 95800 ==

== ENCOUNTER 2024-02-05 17:24 | Outpatient (RCR) | payer OTHER, SELFPAY ==
[2024-01-11 17:25] LABS: Glucose - Point of Care 111 mg/dl (70-99)
[2024-01-11 18:19] LABS: Glucose - Point of Care 100 mg/dl (70-99)
[2024-01-13 17:36] LABS: Glucose - Point of Care 136 mg/dl (70-99)
[2024-01-13 18:26] LABS: Glucose - Point of Care 124 mg/dl (70-99)
[2024-01-15 17:23] LABS: Glucose - Point of Care 93 mg/dl (70-99)
[2024-01-15 18:13] LABS: Glucose - Point of Care 82 mg/dl (70-99)
[2024-01-18 17:33] LABS: Glucose - Point of Care 195 mg/dl (70-99)
[2024-01-18 18:21] LABS: Glucose - Point of Care 127 mg/dl (70-99)
[2024-01-20 17:32] LABS: Glucose - Point of Care 117 mg/dl (70-99)
[2024-01-20 18:16] LABS: Glucose - Point of Care 80 mg/dl (70-99)
[2024-01-22 17:32] LABS: Glucose - Point of Care 147 mg/dl (70-99)
[2024-01-22 18:21] LABS: Glucose - Point of Care 113 mg/dl (70-99)
== END 2024-02-05 23:59 | disposition home or self-care (01) ==
LOC: CRHB 17:24
PROVIDERS: ATTENDING PHYSICIAN Internal Medicine Interventional Cardiology; FAMILY PHYSICIAN Family Medicine
DX: I25.10 Atherosclerotic heart disease of native coronary artery without angina pectoris (principal); Z95.1 Presence of aortocoronary bypass graft
CPT/HCPCS: 82962; G0422; G0423

== ENCOUNTER 2024-02-24 18:02 | Outpatient (RCR) | payer OTHER, SELFPAY | END 2024-02-24 23:59 | disposition home or self-care (01) | LOC: CRHB 18:02 | PROVIDERS: ATTENDING PHYSICIAN Internal Medicine Interventional Cardiology; FAMILY PHYSICIAN Family Medicine | DX: I25.10 Atherosclerotic heart disease of native coronary artery without angina pectoris (principal); Z95.1 Presence of aortocoronary bypass graft | CPT/HCPCS: G0422; G0423 ==

== ENCOUNTER → 2024-03-10 11:09 | Outpatient (REF) | payer OTHER, SELFPAY | LOC: HWRCS 11:09 | PROVIDERS: ATTENDING PHYSICIAN Internal Medicine Interventional Cardiology; FAMILY PHYSICIAN Family Medicine | DX: I25.10 Atherosclerotic heart disease of native coronary artery without angina pectoris (principal) | CPT/HCPCS: 93306 ==

== ENCOUNTER 2024-04-01 17:39 | Outpatient (RCR) | payer OTHER, SELFPAY | END 2024-04-01 23:59 | disposition home or self-care (01) | LOC: CRHB 17:39 | PROVIDERS: ATTENDING PHYSICIAN Internal Medicine Interventional Cardiology; FAMILY PHYSICIAN Family Medicine | DX: I25.10 Atherosclerotic heart disease of native coronary artery without angina pectoris (principal); Z95.1 Presence of aortocoronary bypass graft | CPT/HCPCS: G0422 ==

== ENCOUNTER → 2024-06-24 06:52 | Outpatient (REF) | payer OTHER, SELFPAY ==
[2024-06-24 09:57] LABS: % Basophils 0.7 % (0-2); % Eosinophils 4.4 % (0-6); % Immature Granulocytes 0.3 % (0-0.5); % Lymphocytes 18.6 % (20.5-51.1); % Monocytes 8.1 % (1.7-9.3); % Neutrophils 67.9 % (42.2-75.2); Absolute Basophils 0.1 10^3/uL (0-0.2); Absolute Eosinophils 0.3 10^3/uL (0-0.7); Absolute Lymphocytes 1.4 10^3/uL (1.2-3.4); Absolute Monocytes 0.6 10^3/uL (0.1-0.6); Absolute Neutrophils 5.1 10^3/uL (1.4-6.5); Hematocrit 45.9 % (39.0-52.0); Hemoglobin 15.7 g/dL (13.0-18.0); Mean Corp Hgb Conc. 34.2 g/dL (33.0-37.0); Mean Corpuscular Hgb 30.4 pg (27.0-31.0); Mean Platelet Volume 9.1 fL (7.4-10.4); Nucleated Red Blood Cells % 0 % (-); Platelet Count 240 10^3/uL (130-400); Red Blood Cell Count 5.16 10^6/uL (4.70-6.10); Red Cell Dist. Width 14.1 % (11.5-14.5); White Blood Cell Count 7.5 10^3/uL (4.8-10.8)
[2024-06-24 10:35] LABS: Urine Albumin 1+ (Neg - Trace); Urine Bilirubin Negative (Negative); Urine Character Clear (Clear); Urine Color Yellow; Urine Glucose 4+ (Negative); Urine Ketone Negative (Negative); Urine Leukocyte Negative (Negative); Urine Nitrite Negative (Negative); Urine Occult Blood Negative (Negative); Urine Urobilinogen Negative (Neg - 1+)
[2024-06-24 11:09] LABS: Glycohemoglobin (HgbA1c) 6.8 % (4.0-5.6)
[2024-06-24 12:06] LABS: ALT (SGPT) 23 U/L (0-50); AST (SGOT) 21 U/L (17-59); Albumin 4.1 g/dl (3.5-5.0); Alkaline Phosphatase 74 U/L (38-126); Blood Urea Nitrogen 13 mg/dl (9-20); Calcium 9.1 mg/dl (8.4-10.2); Carbon Dioxide 23 mmol/L (22-30); Chloride 105 mmol/L (98-107); Glucose 128 mg/dl (70-99); HDL Cholesterol 40 mg/dl; LDL Cholesterol, Calculated 40 mg/dl; Potassium 4.2 mmol/L (3.5-5.1); Sodium 140 mmol/L (135-145); Total Bilirubin 0.7 mg/dl (0.2-1.3); Total Cholesterol 102 mg/dl (50-199); Total Protein 6.4 g/dl (6.3-8.2); Triglyceride 110 mg/dl (10-149); Very Low Density Lipoprotein 22 mg/dl (0-30); eGFR > 60.00
[2024-06-24 12:25] LABS: Vitamin D, 25-OH*** < 12.8 ng/mL (30-80)
[2024-06-24 12:40] LABS: PSA, Total - Screen 0.49 ng/ml (0.0-4.0); TSH Reflex To Free T4 1.11 uIU/ml (0.47-4.68)
[2024-06-24 12:41] LABS: Urine Mucus Few; Urine Squamous Cell 0-2 /LPF (Few)
[2024-06-24 12:42] LABS: Urine Amorphous Seen; Urine Red Blood Cell 0-2 /HPF (0-2); Urine White Cell 0-2 /HPF (0-5)
[2024-06-24 13:31] LABS: Microalbumin, Random Urine 0.6 mg/dl (0.6-1.7)
[2024-06-24 13:33] LABS: Microalbumin/creatinine Ratio 3.3 mg/g
== END ==
LOC: HWLAB 06:52
PROVIDERS: ATTENDING PHYSICIAN Family Medicine
DX: E78.5 Hyperlipidemia, unspecified (principal); E66.01 Morbid (severe) obesity due to excess calories; E11.9 Type 2 diabetes mellitus without complications; Z00.01 Encounter for general adult medical examination with abnormal findings; I25.10 Atherosclerotic heart disease of native coronary artery without angina pectoris
CPT/HCPCS: 36415; 80053; 80061; 81003; 81015; 82043; 82306; 82570; 83036; 84443; 85025; G0103

== ENCOUNTER → 2024-11-01 06:21 | Outpatient (REF) | payer OTHER, SELFPAY ==
[2024-11-01 10:16] LABS: ALT (SGPT) 23 U/L (0-50); AST (SGOT) 22 U/L (17-59); Albumin 3.9 g/dl (3.5-5.0); Alkaline Phosphatase 62 U/L (38-126); Blood Urea Nitrogen 15 mg/dl (9-20); Calcium 8.8 mg/dl (8.4-10.2); Carbon Dioxide 26 mmol/L (22-30); Chloride 104 mmol/L (98-107); Glucose 120 mg/dl (70-99); HDL Cholesterol 37 mg/dl; LDL Cholesterol, Calculated 36 mg/dl; Potassium 4.5 mmol/L (3.5-5.1); Sodium 135 mmol/L (135-145); Total Protein 6.3 g/dl (6.3-8.2); Very Low Density Lipoprotein 25 mg/dl (0-30); eGFR > 60.00
[2024-11-01 10:22] LABS: Hematocrit 44.8 % (39.0-52.0); Hemoglobin 15.2 g/dL (13.0-18.0); Mean Corp Hgb Conc. 33.9 g/dL (33.0-37.0); Mean Corpuscular Volume 92.6 fL (80.0-94.0); Nucleated Red Blood Cells % 0 % (-); Platelet Count 253 10^3/uL (130-400); Red Cell Dist. Width 13.2 % (11.5-14.5)
[2024-11-01 10:28] LABS: Vitamin D, 25-OH*** 13.5 ng/mL (30-80)
[2024-11-01 10:33] LABS: Glycohemoglobin (HgbA1c) 6.6 % (4.0-5.6)
[2024-11-01 10:41] LABS: PSA, Total - Screen 0.47 ng/ml (0.0-4.0)
[2024-11-01 11:00] LABS: Microalb - Urine Creatinine 137.900 mg/dl
[2024-11-01 11:04] LABS: Microalbumin, Random Urine < 0.6 mg/dl (0.6-1.7)
== END ==
LOC: HWLAB 06:21
DX: Z00.01 Encounter for general adult medical examination with abnormal findings (principal); E55.9 Vitamin D deficiency, unspecified; E11.9 Type 2 diabetes mellitus without complications; Z12.5 Encounter for screening for malignant neoplasm of prostate
CPT/HCPCS: 36415; 80053; 80061; 82043; 82306; 82570; 83036; 84443; 85025; G0103